=== PATIENT | male | born 1945 | race Caucasian/White ===

== ENCOUNTER 2017-01-24 09:45 | Emergency (ER) | payer BC, OTHER ==
[2017-01-24 09:52] VITALS: BP 151/97; PULSE 67; TEMP 97.7; BMI 38.4
--- NOTE | 2017-01-24 10:14 | PDOC ---
Attending Attestation - Resident Resident Name: Melita Krishnamurthyudmila - ED Attending Attestation I have performed the following: I have examined & evaluated the patient, The case was reviewed & discussed with the resident, I agree w/resident's findings & plan - HPI HPI: 01/24/17 10:31 71y M hx of dm, htn, cad, tia, gout presents with headache. pt states for the past 2 days he has had an intermittent band like headache around his head. It lasts for ~30 min to 1hr, sometimes resolves spontaneously, othertimes releived with rest, worse is 3/10. no associated neuro sypmtoms, visoin changes, n/v, f/ cneck pain. pt ontes he does sleep only approx 6 hrs/ night but has done it for many years. currently headache is 1/10. pts exam unremarkable including neuro exam suspect tension headache supportive care, if persistent will have pt return to ED or fu wit hdr. Annshannan - Physicial Exam PE: 01/24/17 10:37 see above - Medical Decision Making 01/24/17 10:37 see above
[2017-01-24] MEDS ORDERED: METOCLOPRAMIDE HCL 10 MG TABLET (FP) PO ONE ×2 (10:15→10:27)
[2017-01-24] MEDS ORDERED: ACETAMINOPHEN 325 MG TABLET (FP) PO ONE (10:16)
[2017-01-24] MEDS ORDERED: ACETAMINOPHEN 325 MG TABLET (FP) ONE (10:26)
--- NOTE | 2017-01-24 10:33 | PDOC ---
History of Present Illness - General Chief Complaint: Headache Stated Complaint: HEADACHE Time Seen by Provider: 01/24/17 10:01 History Source: Patient Exam Limitations: No Limitations - History of Present Illness Initial Comments: 01/24/17 10:26 This is a 71 yo M with PMH of TIA 2001 s/p CEA 2001, on Effient and Asa, DM, HTN , HLD, CAD s/p stents, who presents with h/a x 24 hr. He describes his h/a as band like, waxing/waning, lasting 15 min at a time, ranging between 3-1/10 and w /o any neuro deficits. He denies weakness, numbness, change in vision or hearing , difficulty swallowing, nausea, vomiting, vertigo, incontinence. He denies chest pain, palpitations, and pain, dysuria, constipation, diarrhea. 01/24/17 10:33 Past History - Past Medical History Allergies/Adverse Reactions: Allergies Allergy/AdvReac Type Severity Reaction Status Date / Time No Known Allergies Allergy Verified 01/24/17 09:52 Home Medications: Ambulatory Orders Allopurinol [Zyloprim -] 100 mg PO DAILY 05/17/16 Amlodipine Besylate [Norvasc -] 5 mg PO DAILY 05/17/16 Aspirin [ASA -] 325 mg PO DAILY 05/17/16 Cephalexin Monohydrate [Keflex -] 500 mg PO Q6H #40 capsule 05/17/16 Enalapril Maleate [Vasotec -] 30 mg PO DAILY 05/17/16 Furosemide [Lasix -] 20 mg PO DAILY 05/17/16 Liraglutide [Victoza -] 1.2 mg SQ DAILY@0700 05/17/16 Metoprolol Tartrate [Lopressor] 50 mg PO DAILY 05/17/16 Prasugrel HCl [Effient] 10 mg PO DAILY 05/17/16 Ranitidine HCl [Zantac] 150 mg PO DAILY 05/17/16 Sulfamethoxazole/Trimethoprim [Bactrim Ds -] 1 tab PO BID #20 tablet 05/17/16 Cardiac Disorders: Yes (stent) CVA: Yes (tia) Diabetes: Yes GI Disorders: Yes (gerd) HTN: Yes - Surgical History Cardiac Surgery: Yes (STENT) - Psycho/Social/Smoking Cessation Hx Anxiety: No Suicidal Ideation: No Smoking History: Former smoker Have you smoked in the past 12 months: No If you are a former smoker, when did you quit?: 2000 Information on smoking cessation initiated: No Hx Alcohol Use: No Drug/Substance Use Hx: No Substance Use Type: None Review of Systems - Review of Systems Able to Perform ROS?: Yes Is the patient limited Lithuanian proficient: No Constitutional: No: Chills, Fever, Weakness HEENTM: No: Blurred Vision, Nose Congestion, Tinnitus, Throat Pain, Difficulty Swallowing Respiratory: No: Cough, Shortness of Breath Cardiac (ROS): No: Chest Pain, Edema, Irregular Heart Rate, Lightheadedness, Palpitations, Syncope, Chest Tightness ABD/GI: No: Abdominal Distended, Constipated, Diarrhea, Difficulty Swallowing, Nausea, Rectal Bleeding, Vomiting, Tarry Stools : No: Dysuria, Flank Pain Musculoskeletal: No: Back Pain, Neck Pain Integumentary: No: Dryness, Erythema Neurological: Yes: Headache. No: Numbness, Paresthesia, Seizure, Tingling, Tremors, Weakness, Unsteady Gait Psychiatric: No: Anxiety Endocrine: No: Excessive Sweating, Flushing Hematologic/Lymphatic: Yes: Easy Bleeding, Easy Bruising (on blood thinners) All Other Systems: Reviewed and Negative *Physical Exam - Vital Signs Last Vital Signs Temp Pulse Resp BP Pulse Ox 97.7 F 67 18 151/97 98 01/24/17 09:49 01/24/17 09:49 01/24/17 09:49 01/24/17 09:49 01/24/17 09:49 01/24/17 10:35 GENERAL: AAOx3 NAD HEENT: PERRLA EOMI, fundoscopic exam normal, sclera anicteric, conjunctiva clear CV: RRR S1S2 PULM: CTA b/l EXTREMITIES: no edema NEURO: CN intact, strength 5/5 in all extremities b/l , bicep and patellar reflexes 1+ b/l, sensation intact in face and extremities b/l Medical Decision Making - Medical Decision Making 01/24/17 10:39 Patient presents with clinical picture most consistent with tension h/a there is no evidence to point to intractaneal pathology will give reglan and tylenol and reassess. 01/24/17 11:07 after an hour the headache resolved, patient stable for d/c *DC/Admit/Observation/Transfer Diagnosis at time of Disposition: Tension headache - Discharge Dispostion Disposition: HOME Condition at time of disposition: Good Admit: No - Patient Instructions Additional Instructions: you had a tension headache. If it returns try taking Tylenol according to label instructions If you develop severe headache, weakness or numbness, please return to ER.
== END 2017-01-24 11:25 | disposition home or self-care (01) ==
LOC: JER 09:45
DX: G44.209 Tension-type headache, unspecified, not intractable (principal); I25.10 Atherosclerotic heart disease of native coronary artery without angina pectoris; I10 Essential (primary) hypertension; Z95.5 Presence of coronary angioplasty implant and graft; E11.9 Type 2 diabetes mellitus without complications; Z86.73 Personal history of transient ischemic attack (TIA), and cerebral infarction without residual deficits; M10.9 Gout, unspecified
CPT/HCPCS: 99281-25

== ENCOUNTER 2020-12-04 09:55 | Inpatient (IN) | payer OTHER ==
[2020-12-04 12:02] LABS: BASO % 0.4 % (0-2.0); HEMATOCRIT 38.8 % (35.4-49); HEMOGLOBIN 13.4 GM/dL (11.7-16.9); LYMPH % 18.3 % (8-40); MCH 31.6 pg (25.7-33.7); MCHC 34.5 g/dl (32.0-35.9); MEAN CELL VOLUME 91.4 fl (80-96); MEAN PLT VOLUME 9.9 fl (7.5-11.1); MONO % 9.3 % (3.8-10.2); PLATELET COUNT 117 K/MM3 (134-434); RBC 4.25 M/mm3 (4.00-5.60); RDW 13.8 % (11.9-15.9); WHITE BLOOD COUNT 3.9 K/mm3 (4.0-10.0)
[2020-12-04 12:24] LABS: CALCIUM 8.1 mg/dL (8.5-10.1)
[2020-12-04 12:25] LABS: ALBUMIN 3.4 g/dl (3.4-5.0); BLOOD UREA NITROGEN 31.3 mg/dL (7-18)
[2020-12-04 12:28] LABS: CREATININE 2.1 mg/dL (0.55-1.3)
[2020-12-04 12:29] LABS: BILIRUBIN,TOTAL 0.7 mg/dL (0.2-1); TOT PROT 7.1 g/dl (6.4-8.2)
[2020-12-04 12:33] LABS: N-TERMINAL BNP 135.4 pg/ml (5-125)
[2020-12-04] MEDS ORDERED: DEXAMETHASONE SOD PHOSPHATE 10 MG/1 ML VIAL IVPUSH ONE (15:25)
[2020-12-04] MEDS ORDERED: DEXAMETHASONE SOD PHOSPHATE 4 MG/1 ML VIAL ONE (16:02)
[2020-12-04] MEDS ORDERED: dilTIAZem HCL 125 MG/25 ML - 25 ML VIAL ONE ×2 (17:10→17:33)
[2020-12-04] MEDS ORDERED: dilTIAZem HCL 50 MG/10 ML - 10 ML VIAL IVPUSH ONE ×2 (17:26→17:33)
[2020-12-04] MEDS ORDERED: ACETAMINOPHEN 1000 MG/100 ML VIAL (NON FORMULARY) IVPB ONE (17:48)
[2020-12-04] MEDS ORDERED: ACETAMINOPHEN INJECTION 100 ML IVPB ONE (17:48)
[2020-12-04] MEDS ORDERED: HEPARIN NA (PORCINE) 5,000 UNITS/ML 1ML VIAL IVPUSH ONE (18:01)
[2020-12-04] MEDS ORDERED: HEPARIN NA (PORCINE) 5,000 UNITS/ML 1ML VIAL ONE ×2 (18:21→22:48)
[2020-12-04] MEDS ORDERED: SODIUM CHLORIDE 0.9% 500 ML INFUS.BAG IV ONE (20:10)
[2020-12-04 21:17] LABS: MAGNESIUM 1.9 mg/dL (1.8-2.4)
[2020-12-04] MEDS ORDERED: HEPARIN - 25,000 UNIT in SODIUM CHLORIDE 495 ML IV SCH (21:45)
[2020-12-04 22:13] LABS: INR 1.08 (0.83-1.09); PROTHROMBIN TIME (PATIENT) 13.3 SEC (9.7-13.0)
[2020-12-04] MEDS ORDERED: HEPARIN NA (PORCINE) 5,000 UNITS/ML 1ML VIAL IVPUSH PRN ×2 (22:15)
[2020-12-04 22:16] LABS: ACTIVATED PTT 29.6 SECONDS (25.2-36.5)
[2020-12-04] MEDS ORDERED: ASCORBIC ACID 500 MG TABLET (FP) ONE (22:47)
[2020-12-04] MEDS ORDERED: HEPARIN INFUSION - 25,000 UNITS/500 ML INFUS.BAG IVPB ONE (22:48)
[2020-12-04] MEDS: ASCORBIC ACID 500 MG TABLET (FP) PO SCH (23:00)
[2020-12-05 06:56] LABS: INR 1.11 (0.83-1.09); PROTHROMBIN TIME (PATIENT) 13.6 SEC (9.7-13.0)
[2020-12-05 07:15] LABS: BASO % 0.2 % (0-2.0); HEMATOCRIT 38.4 % (35.4-49); HEMOGLOBIN 13.2 GM/dL (11.7-16.9); LYMPH % 16.2 % (8-40); MCH 31.3 pg (25.7-33.7); MCHC 34.5 g/dl (32.0-35.9); MEAN CELL VOLUME 90.9 fl (80-96); MEAN PLT VOLUME 10.2 fl (7.5-11.1); MONO % 7.3 % (3.8-10.2); NEUT % 76.3 % (42.8-82.8); PLATELET COUNT 113 K/MM3 (134-434); RBC 4.23 M/mm3 (4.00-5.60); RDW 13.6 % (11.9-15.9); WHITE BLOOD COUNT 3.4 K/mm3 (4.0-10.0)
[2020-12-05] MEDS ORDERED: ASCORBIC ACID 500 MG TABLET (FP) ONE (08:32)
[2020-12-05] MEDS ORDERED: DEXAMETHASONE SOD PHOSPHATE 10 MG/1 ML VIAL ONE (08:32)
[2020-12-05] MEDS ORDERED: ZINC SULFATE 220 MG CAPSULE (FP) ONE (08:33)
[2020-12-05] MEDS ORDERED: CHOLECALCIFEROL (VIT D3) 1,000 UNIT (25 MCG) TABLET ONE (08:33)
[2020-12-05] MEDS ORDERED: METOPROLOL TARTRATE 50 MG TABLET (FP) ONE (08:57)
[2020-12-05] MEDS ORDERED: FUROSEMIDE 40 MG/4 ML INJECTABLE VIAL ONE (08:57)
[2020-12-05] MEDS ORDERED: amLODIPine BESYLATE 5 MG TABLET (FP) ONE (08:57)
[2020-12-05] MEDS: ZINC SULFATE 220 MG CAPSULE (FP) PO SCH (09:00)
[2020-12-05] MEDS: CHOLECALCIFEROL (VIT D3) 1,000 UNIT (25 MCG) TABLET PO SCH (09:00)
[2020-12-05] MEDS: amLODIPine BESYLATE 5 MG TABLET (FP) PO SCH (09:00)
[2020-12-05] MEDS: DEXAMETHASONE SOD PHOSPHATE 4 MG/1 ML VIAL IVPUSH SCH (09:01)
[2020-12-05] MEDS: ASCORBIC ACID 500 MG TABLET (FP) PO SCH ×2 (10:00→21:03)
[2020-12-05] MEDS ORDERED: FUROSEMIDE 40 MG/4 ML INJECTABLE VIAL IVPUSH SCH (10:00)
[2020-12-05] MEDS ORDERED: METOPROLOL TARTRATE 50 MG TABLET (FP) PO SCH (10:00)
[2020-12-05] MEDS: SODIUM CHLORIDE 1,000 ML IV SCH (12:44)
[2020-12-05 13:19] LABS: ALBUMIN 3.3 g/dl (3.4-5.0); BLOOD UREA NITROGEN 31.9 mg/dL (7-18); CALCIUM 8.6 mg/dL (8.5-10.1); MAGNESIUM 2.2 mg/dL (1.8-2.4)
[2020-12-05 13:20] LABS: CREATININE 1.6 mg/dL (0.55-1.3)
[2020-12-05 13:22] LABS: BILIRUBIN,TOTAL 0.6 mg/dL (0.2-1); TOT PROT 7.2 g/dl (6.4-8.2)
[2020-12-05] MEDS: INSULIN SLIDING SCALE (NOVOLOG) 1 VIAL SQ SCH ×2 (17:03→21:03)
[2020-12-05] MEDS: METOPROLOL TARTRATE 25 MG TABLET (FP) PO SCH (21:03)
[2020-12-05] MEDS: APIXABAN 2.5 MG TABLET PO SCH (21:03)
[2020-12-05] MEDS ORDERED: ACETAMINOPHEN 1000 MG/100 ML VIAL (NON FORMULARY) IVPB PRN (21:07)
[2020-12-05] MEDS ORDERED: dilTIAZem HCL 50 MG/10 ML - 10 ML VIAL IVPUSH ONE (21:08)
[2020-12-06] MEDS: INSULIN SLIDING SCALE (NOVOLOG) 1 VIAL SQ SCH ×4 (06:53→21:50)
[2020-12-06 07:15] LABS: BASO % 0.2 % (0-2.0); HEMATOCRIT 39.9 % (35.4-49); HEMOGLOBIN 13.4 GM/dL (11.7-16.9); MCH 30.8 pg (25.7-33.7); MCHC 33.6 g/dl (32.0-35.9); MEAN CELL VOLUME 91.7 fl (80-96); MEAN PLT VOLUME 10.4 fl (7.5-11.1); MONO % 4.1 % (3.8-10.2); NEUT % 87.7 % (42.8-82.8); PLATELET COUNT 118 K/MM3 (134-434); RBC 4.35 M/mm3 (4.00-5.60); RDW 13.9 % (11.9-15.9); WHITE BLOOD COUNT 8.1 K/mm3 (4.0-10.0)
[2020-12-06 07:38] LABS: ALBUMIN 2.7 g/dl (3.4-5.0); BLOOD UREA NITROGEN 38.5 mg/dL (7-18); CALCIUM 8.3 mg/dL (8.5-10.1)
[2020-12-06 07:42] LABS: CREATININE 1.7 mg/dL (0.55-1.3)
[2020-12-06 07:44] LABS: BILIRUBIN,TOTAL 0.6 mg/dL (0.2-1)
[2020-12-06 07:45] LABS: TOT PROT 6.3 g/dl (6.4-8.2)
[2020-12-06] MEDS ORDERED: REMDESIVIR 200 MG in SODIUM CHLORIDE 250 ML IVPB ONE (09:00)
[2020-12-06] MEDS: DEXAMETHASONE SOD PHOSPHATE 4 MG/1 ML VIAL IVPUSH SCH (10:39)
[2020-12-06] MEDS: ZINC SULFATE 220 MG CAPSULE (FP) PO SCH (10:39)
[2020-12-06] MEDS: METOPROLOL TARTRATE 25 MG TABLET (FP) PO SCH ×2 (10:39→21:50)
[2020-12-06] MEDS: ASCORBIC ACID 500 MG TABLET (FP) PO SCH (10:40)
[2020-12-06] MEDS: APIXABAN 2.5 MG TABLET PO SCH ×2 (10:40→21:50)
[2020-12-06] MEDS: amLODIPine BESYLATE 5 MG TABLET (FP) PO SCH (10:40)
[2020-12-06] MEDS: CHOLECALCIFEROL (VIT D3) 1,000 UNIT (25 MCG) TABLET PO SCH (10:40)
[2020-12-06] MEDS: SODIUM CHLORIDE 1,000 ML IV SCH (17:26)
[2020-12-06] MEDS ORDERED: PT OWN MED DRAWER 7, Y5N ONE (17:46)
[2020-12-06] MEDS ORDERED: LACTULOSE 20 GM/30 ML UDC (FOR ORAL USE ONLY) PO PRN (19:14)
[2020-12-06] MEDS: ATORVASTATIN CA 40 MG TABLET (FP) PO SCH (21:50)
[2020-12-06 22:28] LABS: EPI CELLS 11 /uL (0-25.1); HYALINE CASTS 1 /uL (0-3.1); PH,URINE 5.5 (5.0-8.0); URINE APPEARANCE CLEAR; URINE BACTERIA 2 /uL (0-1359); URINE BILIRUBIN NEGATIVE (NEGATIVE); URINE COLOR YELLOW; URINE GLUCOSE (UA) NEGATIVE (NEGATIVE); URINE KETONE NEGATIVE (NEGATIVE); URINE LEUK ESTERASE NEGATIVE (NEGATIVE); URINE NITRITE NEGATIVE (NEGATIVE); URINE PROTEIN 2+ (NEGATIVE); URINE RBC 34 /uL (0-23.9); URINE WBC 7 /uL (0-25.8)
[2020-12-07] MEDS ORDERED: ACETAMINOPHEN 325 MG TABLET (FP) PO PRN (02:17)
[2020-12-07] MEDS: INSULIN SLIDING SCALE (NOVOLOG) 1 VIAL SQ SCH ×4 (06:16→21:37)
[2020-12-07 06:54] LABS: HEMATOCRIT 35.9 % (35.4-49); HEMOGLOBIN 12.1 GM/dL (11.7-16.9); MCH 30.7 pg (25.7-33.7); MCHC 33.8 g/dl (32.0-35.9); MEAN CELL VOLUME 90.7 fl (80-96); PLATELET COUNT 119 K/MM3 (134-434); RBC 3.96 M/mm3 (4.00-5.60); RDW 13.8 % (11.9-15.9); WHITE BLOOD COUNT 5.9 K/mm3 (4.0-10.0)
[2020-12-07 07:22] LABS: ALBUMIN 2.4 g/dl (3.4-5.0); BLOOD UREA NITROGEN 39.6 mg/dL (7-18); CALCIUM 7.7 mg/dL (8.5-10.1)
[2020-12-07 07:26] LABS: CREATININE 1.4 mg/dL (0.55-1.3)
[2020-12-07 07:27] LABS: BILIRUBIN,TOTAL 0.5 mg/dL (0.2-1); TOT PROT 5.6 g/dl (6.4-8.2)
[2020-12-07] MEDS: APIXABAN 2.5 MG TABLET PO SCH ×2 (10:38→21:31)
[2020-12-07] MEDS: amLODIPine BESYLATE 5 MG TABLET (FP) PO SCH (10:39)
[2020-12-07] MEDS: DEXAMETHASONE SOD PHOSPHATE 4 MG/1 ML VIAL IVPUSH SCH (10:39)
[2020-12-07] MEDS: METOPROLOL TARTRATE 25 MG TABLET (FP) PO SCH ×2 (10:39→21:31)
[2020-12-07] MEDS: REMDESIVIR 100 MG in SODIUM CHLORIDE 250 ML IVPB SCH (10:40)
[2020-12-07] MEDS ORDERED: PT OWN MED DRAWER 7, Y5N ONE (11:58)
[2020-12-07] MEDS: SODIUM CHLORIDE 1,000 ML IV SCH (12:38)
[2020-12-07 14:07] LABS: MYCOPLASMA PNEUMONIAE,IG G AB 735 U/mL (0-99); MYCOPLASMA PNEUMONIAE,IGM AB <770 U/mL (0-769)
[2020-12-07] MEDS ORDERED: TOCILIZUMAB (ACTEMRA) 200 MG/10 ML VIAL IVPB ONE ×2 (14:43)
[2020-12-07] MEDS ORDERED: TOCILIZUMAB IVPB ONE (16:00)
[2020-12-07] MEDS ORDERED: SODIUM CHLORIDE IVPB ONE (16:00)
[2020-12-07] MEDS: ATORVASTATIN CA 40 MG TABLET (FP) PO SCH (21:31)
[2020-12-08] MEDS: INSULIN SLIDING SCALE (NOVOLOG) 1 VIAL SQ SCH ×4 (06:10→21:49)
[2020-12-08 07:55] LABS: BASO % 0.1 % (0-2.0); EOS % 0.4 % (0-4.5); HEMATOCRIT 38.1 % (35.4-49); HEMOGLOBIN 12.9 GM/dL (11.7-16.9); LYMPH % 8.7 % (8-40); MCH 30.5 pg (25.7-33.7); MCHC 33.9 g/dl (32.0-35.9); MONO % 9.7 % (3.8-10.2); NEUT % 81.1 % (42.8-82.8); PLATELET COUNT 149 K/MM3 (134-434); RBC 4.23 M/mm3 (4.00-5.60); RDW 13.9 % (11.9-15.9); WHITE BLOOD COUNT 5.7 K/mm3 (4.0-10.0)
[2020-12-08 08:20] LABS: CALCIUM 7.5 mg/dL (8.5-10.1)
[2020-12-08 08:21] LABS: ALBUMIN 2.4 g/dl (3.4-5.0); BLOOD UREA NITROGEN 34.1 mg/dL (7-18)
[2020-12-08 08:24] LABS: CREATININE 1.2 mg/dL (0.55-1.3)
[2020-12-08 08:26] LABS: BILIRUBIN,TOTAL 0.9 mg/dL (0.2-1); TOT PROT 5.8 g/dl (6.4-8.2)
[2020-12-08] MEDS: APIXABAN 2.5 MG TABLET PO SCH ×2 (09:36→21:49)
[2020-12-08] MEDS: REMDESIVIR 100 MG in SODIUM CHLORIDE 250 ML IVPB SCH (09:36)
[2020-12-08] MEDS: METOPROLOL TARTRATE 25 MG TABLET (FP) PO SCH ×2 (09:36→21:49)
[2020-12-08] MEDS: DEXAMETHASONE SOD PHOSPHATE 4 MG/1 ML VIAL IVPUSH SCH (09:36)
[2020-12-08] MEDS: amLODIPine BESYLATE 5 MG TABLET (FP) PO SCH (09:37)
[2020-12-08] MEDS: SODIUM CHLORIDE 1,000 ML IV SCH (12:30)
[2020-12-08] MEDS: ATORVASTATIN CA 40 MG TABLET (FP) PO SCH (21:48)
[2020-12-09] MEDS: SODIUM CHLORIDE 1,000 ML IV SCH (00:43)
[2020-12-09] MEDS: INSULIN SLIDING SCALE (NOVOLOG) 1 VIAL SQ SCH ×4 (06:44→22:10)
[2020-12-09 07:04] LABS: BASO % 0.6 % (0-2.0); HEMATOCRIT 37.8 % (35.4-49); HEMOGLOBIN 12.9 GM/dL (11.7-16.9); LYMPH % 6.4 % (8-40); MCH 31.1 pg (25.7-33.7); MCHC 34.1 g/dl (32.0-35.9); MEAN CELL VOLUME 91.1 fl (80-96); MEAN PLT VOLUME 10.1 fl (7.5-11.1); PLATELET COUNT 166 K/MM3 (134-434); RBC 4.15 M/mm3 (4.00-5.60); RDW 14.1 % (11.9-15.9); WHITE BLOOD COUNT 7.5 K/mm3 (4.0-10.0)
[2020-12-09 07:39] LABS: CALCIUM 8.2 mg/dL (8.5-10.1)
[2020-12-09 07:40] LABS: ALBUMIN 2.4 g/dl (3.4-5.0); BLOOD UREA NITROGEN 36.1 mg/dL (7-18)
[2020-12-09 07:44] LABS: CREATININE 1.2 mg/dL (0.55-1.3)
[2020-12-09 07:46] LABS: BILIRUBIN,TOTAL 0.8 mg/dL (0.2-1); TOT PROT 5.8 g/dl (6.4-8.2)
[2020-12-09] MEDS: METOPROLOL TARTRATE 25 MG TABLET (FP) PO SCH ×2 (09:18→22:10)
[2020-12-09] MEDS: REMDESIVIR 100 MG in SODIUM CHLORIDE 250 ML IVPB SCH (09:18)
[2020-12-09] MEDS: ENALAPRIL MALEATE 2.5 MG TABLET PO SCH (09:18)
[2020-12-09] MEDS: amLODIPine BESYLATE 5 MG TABLET (FP) PO SCH (09:18)
[2020-12-09] MEDS: APIXABAN 2.5 MG TABLET PO SCH ×2 (09:18→22:10)
[2020-12-09] MEDS: DEXAMETHASONE SOD PHOSPHATE 4 MG/1 ML VIAL IVPUSH SCH (09:20)
[2020-12-09 10:50] LABS: ANISOCYTOSIS 0; HELMET CELLS 0; HOWELL-JOLLY BODIES 0; MACROCYTOSIS 0; OVALOCYTE 0; PLATELET ESTIMATE NORMAL; ROULEAU 0; SICKELED CELLS 0; TARGET CELLS 0; TEAR DROP CELLS 0; TOXIC GRANULATION 0
[2020-12-09] MEDS ORDERED: FUROSEMIDE 40 MG/4 ML INJECTABLE VIAL IVPUSH ONE (12:08)
[2020-12-09] MEDS: ATORVASTATIN CA 40 MG TABLET (FP) PO SCH (22:10)
[2020-12-09] MEDS: MELATONIN 5 MG TABLETS PO PRN (23:19)
[2020-12-10] MEDS: INSULIN SLIDING SCALE (NOVOLOG) 1 VIAL SQ SCH ×4 (06:13→22:02)
[2020-12-10 06:57] LABS: ALBUMIN 2.4 g/dl (3.4-5.0); CALCIUM 7.9 mg/dL (8.5-10.1)
[2020-12-10 06:58] LABS: BLOOD UREA NITROGEN 43.6 mg/dL (7-18); MAGNESIUM 2.2 mg/dL (1.8-2.4)
[2020-12-10 07:01] LABS: CREATININE 1.4 mg/dL (0.55-1.3)
[2020-12-10 07:02] LABS: BILIRUBIN,TOTAL 0.7 mg/dL (0.2-1); TOT PROT 5.8 g/dl (6.4-8.2)
[2020-12-10] MEDS: amLODIPine BESYLATE 5 MG TABLET (FP) PO SCH (10:10)
[2020-12-10] MEDS: ENALAPRIL MALEATE 2.5 MG TABLET PO SCH (10:10)
[2020-12-10] MEDS: APIXABAN 2.5 MG TABLET PO SCH ×2 (10:10→22:02)
[2020-12-10] MEDS: METOPROLOL TARTRATE 25 MG TABLET (FP) PO SCH ×2 (10:10→22:02)
[2020-12-10] MEDS: REMDESIVIR 100 MG in SODIUM CHLORIDE 250 ML IVPB SCH (10:10)
[2020-12-10] MEDS: DEXAMETHASONE SOD PHOSPHATE 4 MG/1 ML VIAL IVPUSH SCH (10:11)
[2020-12-10] MEDS: SODIUM ZIRCONIUM CYCLOSILICATE (LOKELMA) 10 GM PACKET PO SCH (15:23)
[2020-12-10] MEDS: ATORVASTATIN CA 40 MG TABLET (FP) PO SCH (22:02)
[2020-12-10] MEDS: MELATONIN 5 MG TABLETS PO PRN (22:02)
[2020-12-10] MEDS ORDERED: MELATONIN 5 MG TABLETS PO ONE (23:41)
[2020-12-11] MEDS ORDERED: LORazepam 2 MG/ML SDV VIAL IVPUSH ONE (04:39)
[2020-12-11] MEDS: INSULIN SLIDING SCALE (NOVOLOG) 1 VIAL SQ SCH ×4 (06:55→21:56)
[2020-12-11 08:02] LABS: BASO % 0.3 % (0-2.0); EOS % 0.5 % (0-4.5); HEMATOCRIT 42.2 % (35.4-49); HEMOGLOBIN 14.3 GM/dL (11.7-16.9); LYMPH % 6.6 % (8-40); MCH 30.8 pg (25.7-33.7); MEAN CELL VOLUME 90.7 fl (80-96); MEAN PLT VOLUME 9.6 fl (7.5-11.1); MONO % 3.4 % (3.8-10.2); NEUT % 89.2 % (42.8-82.8); PLATELET COUNT 216 K/MM3 (134-434); RBC 4.65 M/mm3 (4.00-5.60); RDW 13.8 % (11.9-15.9)
[2020-12-11 08:08] LABS: CALCIUM 8.1 mg/dL (8.5-10.1)
[2020-12-11 08:09] LABS: ALBUMIN 2.6 g/dl (3.4-5.0); MAGNESIUM 2.2 mg/dL (1.8-2.4)
[2020-12-11 08:12] LABS: CREATININE 1.3 mg/dL (0.55-1.3)
[2020-12-11 08:13] LABS: BILIRUBIN,TOTAL 0.9 mg/dL (0.2-1); TOT PROT 5.9 g/dl (6.4-8.2)
[2020-12-11] MEDS ORDERED: PT OWN MED DRAWER 7, Y5N ONE (09:45)
[2020-12-11] MEDS: METOPROLOL TARTRATE 25 MG TABLET (FP) PO SCH ×2 (09:52→21:42)
[2020-12-11] MEDS: DEXAMETHASONE SOD PHOSPHATE 4 MG/1 ML VIAL IVPUSH SCH ×2 (09:52→21:35)
[2020-12-11] MEDS: SODIUM ZIRCONIUM CYCLOSILICATE (LOKELMA) 10 GM PACKET PO SCH (09:52)
[2020-12-11] MEDS: APIXABAN 2.5 MG TABLET PO SCH ×2 (09:52→21:35)
[2020-12-11] MEDS: amLODIPine BESYLATE 5 MG TABLET (FP) PO SCH (09:52)
[2020-12-11] MEDS: FAMOTIDINE 20 MG/50 ML IVPB 20 MG/50 ML MG IVPB SCH ×2 (14:26→21:35)
[2020-12-11] MEDS: ATORVASTATIN CA 40 MG TABLET (FP) PO SCH (21:34)
[2020-12-12] MEDS: MORPHINE SULFATE 2 MG/ML VIAL IVPUSH ONE ×2 (00:03→00:11)
[2020-12-12] MEDS: MELATONIN 5 MG TABLETS PO SCH ×2 (00:03→21:24)
[2020-12-12] MEDS ORDERED: LORazepam 1 MG TABLET PO ONE (00:18)
[2020-12-12] MEDS ORDERED: LORazepam 2 MG/ML SDV VIAL ONE (02:49)
[2020-12-12] MEDS ORDERED: LORazepam 2 MG/ML SDV VIAL IVPUSH ONE ×2 (03:00→04:39)
[2020-12-12] MEDS ORDERED: FUROSEMIDE 40 MG/4 ML INJECTABLE VIAL IVPUSH ONE (03:00)
[2020-12-12] MEDS: HALOPERIDOL LACTATE 5 MG/ML IM ONE ×2 (05:43→05:50)
[2020-12-12] MEDS: INSULIN SLIDING SCALE (NOVOLOG) 1 VIAL SQ SCH ×4 (06:32→21:28)
[2020-12-12] MEDS: LORazepam 2 MG/ML SDV VIAL IVPUSH SCH ×3 (06:36→17:38)
[2020-12-12 06:52] LABS: ARTERIAL BLD GAS O2 SATURATION 86.6 mmHg (95-98); ARTERIAL BLOOD GAS BASE EXCESS -4.8 mmol/L (-2-2); ARTERIAL BLOOD GAS PO2 52.8 mmHg (80-100); ARTERIAL BLOOD GAS pH 7.365 (7.350-7.450)
[2020-12-12 06:54] LABS: ALLENS TEST POSITIVE
[2020-12-12] MEDS ORDERED: SUCCINYLCHOLINE CHLORIDE 200 MG/10 ML SYRINGE ONE (07:15)
[2020-12-12 07:41] LABS: BASO % 0.3 % (0-2.0); EOS % 0.1 % (0-4.5); HEMATOCRIT 44.4 % (35.4-49); HEMOGLOBIN 15.3 GM/dL (11.7-16.9); LYMPH % 3.3 % (8-40); MCH 30.7 pg (25.7-33.7); MCHC 34.4 g/dl (32.0-35.9); MEAN CELL VOLUME 89.5 fl (80-96); MEAN PLT VOLUME 9.1 fl (7.5-11.1); MONO % 2.8 % (3.8-10.2); NEUT % 93.5 % (42.8-82.8); PLATELET COUNT 204 K/MM3 (134-434); RBC 4.97 M/mm3 (4.00-5.60); RDW 14.1 % (11.9-15.9); WHITE BLOOD COUNT 12.4 K/mm3 (4.0-10.0)
[2020-12-12] MEDS ORDERED: MIDAZOLAM HCL 2 MG/2 ML SINGLE DOSE VIAL IVPUSH ONE (07:41)
[2020-12-12] MEDS ORDERED: PROPOFOL 200 MG/20 ML VIAL IVPUSH ONE (07:48)
[2020-12-12] MEDS ORDERED: LORazepam 2 MG/ML SDV VIAL IM ONE (07:50)
[2020-12-12 08:09] LABS: ALBUMIN 2.8 g/dl (3.4-5.0); BLOOD UREA NITROGEN 59.4 mg/dL (7-18); CALCIUM 8.2 mg/dL (8.5-10.1); PHOSPHOROUS 5.8 mg/dL (2.5-4.9)
[2020-12-12 08:10] LABS: TOT PROT 6.3 g/dl (6.4-8.2)
[2020-12-12 08:11] LABS: CREATININE 1.8 mg/dL (0.55-1.3); MAGNESIUM 2.1 mg/dL (1.8-2.4)
[2020-12-12] MEDS ORDERED: PROPOFOL 1,000,000 MCG/100 ML VIAL ONE (08:29)
[2020-12-12] MEDS ORDERED: FENTANYL NS IVPB 500 MCG/100 ML BAG IVPB ONE (08:29)
[2020-12-12 10:29] LABS: ANISOCYTOSIS 0; HELMET CELLS 0; HOWELL-JOLLY BODIES 0; MACROCYTOSIS 0; OVALOCYTE 0; PLATELET ESTIMATE NORMAL; ROULEAU 0; SICKELED CELLS 0; TARGET CELLS 0; TEAR DROP CELLS 0; TOXIC GRANULATION 0
[2020-12-12] MEDS: VECURONIUM BROMIDE 100 MG/100 ML BAG IVPB SCH (11:09)
[2020-12-12] MEDS: DEXAMETHASONE SOD PHOSPHATE 4 MG/1 ML VIAL IVPUSH SCH ×2 (11:09→21:23)
[2020-12-12] MEDS: HALOPERIDOL LACTATE 5 MG/ML IM SCH ×4 (11:10→21:24)
[2020-12-12] MEDS: METOPROLOL TARTRATE 25 MG TABLET (FP) PO SCH ×2 (11:10→21:23)
[2020-12-12] MEDS: APIXABAN 2.5 MG TABLET PO SCH ×2 (11:10→21:23)
[2020-12-12] MEDS: amLODIPine BESYLATE 5 MG TABLET (FP) PO SCH (11:10)
[2020-12-12] MEDS: FAMOTIDINE 20 MG/50 ML IVPB 20 MG/50 ML MG IVPB SCH ×2 (11:11→21:23)
[2020-12-12 12:04] LABS: ARTERIAL BLOOD GAS BASE EXCESS -5.4 mmol/L (-2-2); ARTERIAL BLOOD GAS PO2 108.8 mmHg (80-100); ARTERIAL BLOOD GAS pH 7.231 (7.350-7.450)
[2020-12-12 12:05] LABS: ALLENS TEST POSITIVE
[2020-12-12 12:06] LABS: VENT MODE AC; VENT RATE 24
[2020-12-12] MEDS: PROPOFOL 1,000,000 MCG/100 ML VIAL IVPB SCH (12:06)
[2020-12-12] MEDS: FENTANYL NS IVPB 500 MCG/100 ML BAG IVPB SCH (15:19)
[2020-12-12] MEDS ORDERED: PT OWN MED DRAWER 7, Y5N ONE (20:49)
[2020-12-12] MEDS: ATORVASTATIN CA 40 MG TABLET (FP) PO SCH (21:23)
[2020-12-13] MEDS ORDERED: SODIUM CHLORIDE 500 ML IV SCH (00:30)
[2020-12-13] MEDS ORDERED: SODIUM CHLORIDE 1,000 ML IV SCH (00:30)
[2020-12-13] MEDS: LORazepam 2 MG/ML SDV VIAL IVPUSH SCH ×5 (01:16→17:40)
[2020-12-13] MEDS: HALOPERIDOL LACTATE 5 MG/ML IM SCH ×4 (01:17→15:57)
[2020-12-13 06:15] LABS: ARTERIAL BLD GAS O2 SATURATION 98.5 mmHg (95-98); ARTERIAL BLOOD GAS BASE EXCESS -6.3 mmol/L (-2-2); ARTERIAL BLOOD GAS PO2 150.1 mmHg (80-100); ARTERIAL BLOOD GAS pH 7.229 (7.350-7.450)
[2020-12-13 06:22] LABS: ALLENS TEST POSITIVE
[2020-12-13 06:23] LABS: VENT MODE V-AC; VENT RATE 24
[2020-12-13] MEDS: INSULIN SLIDING SCALE (NOVOLOG) 1 VIAL SQ SCH ×4 (06:38→22:51)
[2020-12-13 07:11] LABS: BASO % 0.4 % (0-2.0); EOS % 0.1 % (0-4.5); HEMATOCRIT 40.5 % (35.4-49); HEMOGLOBIN 13.5 GM/dL (11.7-16.9); LYMPH % 3.5 % (8-40); MCH 30.5 pg (25.7-33.7); MCHC 33.4 g/dl (32.0-35.9); MEAN CELL VOLUME 91.5 fl (80-96); MEAN PLT VOLUME 9.5 fl (7.5-11.1); MONO % 1.6 % (3.8-10.2); NEUT % 94.4 % (42.8-82.8); PLATELET COUNT 163 K/MM3 (134-434); RBC 4.43 M/mm3 (4.00-5.60); RDW 13.9 % (11.9-15.9); WHITE BLOOD COUNT 15.6 K/mm3 (4.0-10.0)
[2020-12-13 07:15] LABS: CHLORIDE 104 mmol/L (98-107); SODIUM 137 mmol/L (136-145)
[2020-12-13 07:17] LABS: ANION GAP 12 MMOL/L (8-16); CALCIUM 7.5 mg/dL (8.5-10.1); CO2 22 mmol/L (21-32); GLUCOSE,RANDOM 193 mg/dL (74-106)
[2020-12-13 07:18] LABS: ALBUMIN 2.6 g/dl (3.4-5.0); MAGNESIUM 2.7 mg/dL (1.8-2.4)
[2020-12-13 07:20] LABS: CREATININE 3.5 mg/dL (0.55-1.3); SGPT/ALT 47 U/L (13-61)
[2020-12-13 07:21] LABS: SGOT/AST 25 U/L (15-37)
[2020-12-13 07:22] LABS: BILIRUBIN,TOTAL 0.6 mg/dL (0.2-1); TOT PROT 5.6 g/dl (6.4-8.2)
[2020-12-13 07:23] LABS: ALK PHOS 66 U/L (45-117)
[2020-12-13 07:48] LABS: BLOOD UREA NITROGEN 96.6 mg/dL (7-18)
[2020-12-13] MEDS ORDERED: DEXTROSE 50%-WATER - 25 GM/50 ML VIAL IVPUSH ONE (08:17)
[2020-12-13] MEDS ORDERED: INSULIN REGULAR HUMAN 100 UNITS/ML *VIAL IVPUSH ONE (08:17)
[2020-12-13] MEDS ORDERED: CALCIUM GLUCONATE 10% - 1,000 MG/10 ML VIAL IVPUSH ONE (08:18)
[2020-12-13] MEDS ORDERED: DEXTROSE 50%-WATER 25 GM/50 ML DISP.SYRIN ONE (08:55)
[2020-12-13] MEDS: SODIUM CHLORIDE 1,000 ML IV SCH ×2 (08:59→23:42)
[2020-12-13] MEDS: APIXABAN 2.5 MG TABLET PO SCH ×2 (09:05→22:30)
[2020-12-13] MEDS: METOPROLOL TARTRATE 25 MG TABLET (FP) PO SCH ×2 (09:06→22:31)
[2020-12-13] MEDS: FAMOTIDINE 20 MG/50 ML IVPB 20 MG/50 ML MG IVPB SCH ×2 (09:06→22:31)
[2020-12-13] MEDS: amLODIPine BESYLATE 5 MG TABLET (FP) PO SCH (09:06)
[2020-12-13] MEDS: DEXAMETHASONE SOD PHOSPHATE 4 MG/1 ML VIAL IVPUSH SCH ×2 (09:29→22:30)
[2020-12-13] MEDS ORDERED: SODIUM ZIRCONIUM CYCLOSILICATE (LOKELMA) 5 GM PACKET PO SCH (10:00)
[2020-12-13] MEDS ORDERED: PT OWN MED DRAWER 7, Y5N ONE (10:07)
[2020-12-13] MEDS ORDERED: CALCIUM GLUCONATE IN NACL 1 GM/50 ML BAG IVPB ONE (10:15)
[2020-12-13 10:17] LABS: ANISOCYTOSIS 0; HELMET CELLS 0; HOWELL-JOLLY BODIES 0; MACROCYTOSIS 0; OVALOCYTE 0; PLATELET ESTIMATE NORMAL; ROULEAU 0; SICKELED CELLS 0; TARGET CELLS 0; TEAR DROP CELLS 0; TOXIC GRANULATION 0
[2020-12-13] MEDS: VECURONIUM BROMIDE 100 MG/100 ML BAG IVPB SCH (11:21)
[2020-12-13] MEDS ORDERED: METOPROLOL TARTRATE 5 MG/5 ML VIAL IVPUSH PRN (12:41)
[2020-12-13] MEDS ORDERED: METOPROLOL TARTRATE 5 MG/5 ML VIAL IVPUSH ONE (12:42)
[2020-12-13] MEDS: PROPOFOL 1,000,000 MCG/100 ML VIAL IVPB SCH (14:00)
[2020-12-13] MEDS: SODIUM ZIRCONIUM CYCLOSILICATE (LOKELMA) 5 GM PACKET PO SCH (15:57)
[2020-12-13] MEDS: FENTANYL NS IVPB 500 MCG/100 ML BAG IVPB SCH (15:57)
[2020-12-13] MEDS: SEVELAMER CARBONATE 2.4 GM POWDER PACKET PO SCH (17:25)
[2020-12-13] MEDS: METOPROLOL TARTRATE 5 MG/5 ML VIAL IVPUSH PRN (18:16)
[2020-12-13] MEDS: ATORVASTATIN CA 40 MG TABLET (FP) PO SCH (22:30)
[2020-12-13] MEDS: NOREPINEPHRINE BITARTRATE 8,000 MCG/500 ML BAG IVPB SCH (23:41)
[2020-12-14] MEDS: LORazepam 2 MG/ML SDV VIAL IVPUSH SCH ×4 (00:59→17:34)
[2020-12-14] MEDS: INSULIN SLIDING SCALE (NOVOLOG) 1 VIAL SQ SCH ×4 (06:04→21:36)
[2020-12-14 06:37] LABS: ARTERIAL BLD GAS O2 SATURATION 98.1 mmHg (95-98); ARTERIAL BLOOD GAS BASE EXCESS -8.1 mmol/L (-2-2); ARTERIAL BLOOD GAS PO2 130.2 mmHg (80-100); ARTERIAL BLOOD GAS pH 7.242 (7.350-7.450)
[2020-12-14 06:48] LABS: ALLENS TEST POSITIVE; VENT MODE A/C; VENT RATE 24
[2020-12-14 06:52] LABS: BASO % 0.1 % (0-2.0); EOS % 0.1 % (0-4.5); HEMATOCRIT 39.8 % (35.4-49); HEMOGLOBIN 13.5 GM/dL (11.7-16.9); LYMPH % 3.2 % (8-40); MCH 30.7 pg (25.7-33.7); MEAN CELL VOLUME 90.4 fl (80-96); MEAN PLT VOLUME 9.2 fl (7.5-11.1); MONO % 2.9 % (3.8-10.2); NEUT % 93.7 % (42.8-82.8); PLATELET COUNT 244 K/MM3 (134-434); RDW 14.1 % (11.9-15.9); WHITE BLOOD COUNT 23.5 K/mm3 (4.0-10.0)
[2020-12-14 07:14] LABS: CALCIUM 7.4 mg/dL (8.5-10.1)
[2020-12-14 07:15] LABS: ALBUMIN 2.6 g/dl (3.4-5.0); BLOOD UREA NITROGEN 103.5 mg/dL (7-18); MAGNESIUM 2.9 mg/dL (1.8-2.4)
[2020-12-14 07:18] LABS: PHOSPHOROUS 6.8 mg/dL (2.5-4.9)
[2020-12-14 07:19] LABS: BILIRUBIN,TOTAL 0.7 mg/dL (0.2-1); TOT PROT 5.6 g/dl (6.4-8.2)
[2020-12-14] MEDS ORDERED: SODIUM CHLORIDE 0.45% 1,000 ML IV SCH (08:30)
[2020-12-14] MEDS: PROPOFOL 1,000,000 MCG/100 ML VIAL IVPB SCH (09:22)
[2020-12-14] MEDS: SEVELAMER CARBONATE 2.4 GM POWDER PACKET PO SCH ×3 (09:25→17:33)
[2020-12-14] MEDS ORDERED: PIPERACILLIN/TAZOB 3.375 GM 3.375 GM in DEXTROSE 5%-WATER - 50 ML IVPB SCH (10:00)
[2020-12-14] MEDS ORDERED: PIPERACILLIN/TAZOB 2.25 GM 2.25 GM in DEXTROSE 5%-WATER - 50 ML IVPB ONE (10:00)
[2020-12-14] MEDS ORDERED: VANCOMYCIN 1 GM in D5W (PRE-DOCKED) 1,000 MG/250 ML IVPB ONE (10:00)
[2020-12-14] MEDS: amLODIPine BESYLATE 5 MG TABLET (FP) PO SCH (10:25)
[2020-12-14] MEDS: DEXAMETHASONE SOD PHOSPHATE 4 MG/1 ML VIAL IVPUSH SCH ×2 (10:25→21:34)
[2020-12-14] MEDS: SODIUM ZIRCONIUM CYCLOSILICATE (LOKELMA) 5 GM PACKET PO SCH (10:25)
[2020-12-14] MEDS: FAMOTIDINE 20 MG/50 ML IVPB 20 MG/50 ML MG IVPB SCH ×2 (10:25→21:35)
[2020-12-14] MEDS: METOPROLOL TARTRATE 25 MG TABLET (FP) PO SCH ×2 (10:25→21:35)
[2020-12-14] MEDS: SODIUM CHLORIDE 0.45% 1,000 ML IV SCH (10:25)
[2020-12-14] MEDS: APIXABAN 2.5 MG TABLET PO SCH ×2 (10:25→21:35)
[2020-12-14] MEDS ORDERED: PIPERACILLIN/TAZOBACTAM 2.25 GM VIAL IVPB ONE (10:59)
[2020-12-14] MEDS ORDERED: DEXTROSE 5%-WATER - 50 ML IVPB ONE (10:59)
[2020-12-14 11:35] LABS: ANISOCYTOSIS 1+; MACROCYTOSIS 0; OVALOCYTE 1+; PLATELET ESTIMATE NORMAL; TEAR DROP CELLS 1+; TOXIC GRANULATION 2+
[2020-12-14] MEDS: AMINO ACIDS/PROTEIN HYDROLYS 30 ML LIQUID.PKT PO SCH (17:33)
[2020-12-14] MEDS: FENTANYL NS IVPB 500 MCG/100 ML BAG IVPB SCH (17:33)
[2020-12-14 20:39] LABS: EPI CELLS >36 /uL (0-25.1); HYALINE CASTS 15 /uL (0-3.1); URINE APPEARANCE CLOUDY; URINE BACTERIA 93 /uL (0-1359); URINE BILIRUBIN NEGATIVE (NEGATIVE); URINE COLOR YELLOW; URINE GLUCOSE (UA) 1+ (NEGATIVE); URINE KETONE NEGATIVE (NEGATIVE); URINE LEUK ESTERASE 2+ (NEGATIVE); URINE NITRITE NEGATIVE (NEGATIVE); URINE PROTEIN 1+ (NEGATIVE); URINE RBC 1565 /uL (0-23.9); URINE UROBILINOGEN 0.2 mg/dL (0.2-1.0); URINE WBC 378 /uL (0-25.8)
[2020-12-14 21:33] LABS: URINE CRYSTALS PRESENT /hpf
[2020-12-14] MEDS: ATORVASTATIN CA 40 MG TABLET (FP) PO SCH (21:35)
[2020-12-14] MEDS: VECURONIUM BROMIDE 100 MG/100 ML BAG IVPB SCH (21:35)
[2020-12-15] MEDS: NOREPINEPHRINE BITARTRATE 8,000 MCG/500 ML BAG IVPB SCH ×3 (01:02→23:02)
[2020-12-15] MEDS: LORazepam 2 MG/ML SDV VIAL IVPUSH SCH ×4 (01:02→17:52)
[2020-12-15] MEDS: INSULIN SLIDING SCALE (NOVOLOG) 1 VIAL SQ SCH ×4 (06:06→21:16)
[2020-12-15 07:18] LABS: BASO % 0.7 % (0-2.0); HEMATOCRIT 37.5 % (35.4-49); HEMOGLOBIN 12.6 GM/dL (11.7-16.9); MCH 30.6 pg (25.7-33.7); MCHC 33.6 g/dl (32.0-35.9); MEAN PLT VOLUME 9.2 fl (7.5-11.1); MONO % 3.2 % (3.8-10.2); NEUT % 94.1 % (42.8-82.8); PLATELET COUNT 165 K/MM3 (134-434); RBC 4.12 M/mm3 (4.00-5.60); RDW 13.7 % (11.9-15.9); WHITE BLOOD COUNT 20.5 K/mm3 (4.0-10.0)
[2020-12-15 07:40] LABS: ALBUMIN 2.5 g/dl (3.4-5.0)
[2020-12-15 07:41] LABS: BLOOD UREA NITROGEN 103.8 mg/dL (7-18); CALCIUM 7.1 mg/dL (8.5-10.1); MAGNESIUM 3.1 mg/dL (1.8-2.4)
[2020-12-15 07:44] LABS: CREATININE 2.2 mg/dL (0.55-1.3); PHOSPHOROUS 4.9 mg/dL (2.5-4.9)
[2020-12-15 07:45] LABS: BILIRUBIN,TOTAL 0.7 mg/dL (0.2-1)
[2020-12-15 07:46] LABS: TOT PROT 5.2 g/dl (6.4-8.2)
[2020-12-15] MEDS ORDERED: CALCIUM GLUCONATE 10% - 1,000 MG/10 ML VIAL IVPUSH ONE (08:31)
[2020-12-15] MEDS ORDERED: SODIUM ZIRCONIUM CYCLOSILICATE (LOKELMA) 5 GM PACKET PO ONE (08:32)
[2020-12-15] MEDS ORDERED: DEXTROSE 50%-WATER - 25 GM/50 ML VIAL IVPUSH ONE ×2 (08:32→18:19)
[2020-12-15] MEDS ORDERED: INSULIN REGULAR HUMAN 100 UNITS/ML *VIAL IVPUSH ONE ×3 (08:32→22:55)
[2020-12-15] MEDS: METOPROLOL TARTRATE 5 MG/5 ML VIAL IVPUSH PRN ×2 (08:50→16:44)
[2020-12-15] MEDS: SODIUM CHLORIDE 0.45% 1,000 ML IV SCH (09:17)
[2020-12-15] MEDS: SEVELAMER CARBONATE 2.4 GM POWDER PACKET PO SCH ×2 (09:17→11:19)
[2020-12-15] MEDS: PROPOFOL 1,000,000 MCG/100 ML VIAL IVPB SCH (09:17)
[2020-12-15] MEDS: AMINO ACIDS/PROTEIN HYDROLYS 30 ML LIQUID.PKT PO SCH ×2 (09:18→17:20)
[2020-12-15] MEDS: SODIUM ZIRCONIUM CYCLOSILICATE (LOKELMA) 5 GM PACKET PO SCH (09:25)
[2020-12-15] MEDS: DEXAMETHASONE SOD PHOSPHATE 4 MG/1 ML VIAL IVPUSH SCH ×2 (09:25→21:16)
[2020-12-15] MEDS: amLODIPine BESYLATE 5 MG TABLET (FP) PO SCH (09:25)
[2020-12-15] MEDS: APIXABAN 2.5 MG TABLET PO SCH ×2 (09:25→21:16)
[2020-12-15] MEDS: FAMOTIDINE 20 MG/50 ML IVPB 20 MG/50 ML MG IVPB SCH ×2 (09:26→21:16)
[2020-12-15] MEDS: METOPROLOL TARTRATE 25 MG TABLET (FP) PO SCH ×2 (09:26→21:17)
[2020-12-15 10:31] LABS: ANISOCYTOSIS 0; MACROCYTOSIS 0; PLATELET ESTIMATE NORMAL
[2020-12-15] MEDS: VECURONIUM BROMIDE 100 MG/100 ML BAG IVPB SCH (11:19)
[2020-12-15] MEDS: FENTANYL NS IVPB 500 MCG/100 ML BAG IVPB SCH ×2 (14:18→17:18)
[2020-12-15 18:07] LABS: CALCIUM 7.4 mg/dL (8.5-10.1)
[2020-12-15 18:08] LABS: ALBUMIN 2.4 g/dl (3.4-5.0); BLOOD UREA NITROGEN 98.8 mg/dL (7-18)
[2020-12-15 18:11] LABS: CREATININE 2.1 mg/dL (0.55-1.3)
[2020-12-15 18:12] LABS: BILIRUBIN,TOTAL 0.6 mg/dL (0.2-1); TOT PROT 5.3 g/dl (6.4-8.2)
[2020-12-15] MEDS ORDERED: DEXTROSE 50%-WATER 25 GM/50 ML DISP.SYRIN ONE (18:15)
[2020-12-15] MEDS ORDERED: CALCIUM GLUCONATE 10% - 1,000 MG/10 ML VIAL ONE (18:16)
[2020-12-15] MEDS ORDERED: CALCIUM GLUCONATE 10% - 1,000 MG/10 ML VIAL IVPB ONE (18:19)
[2020-12-15] MEDS: INSULIN (LEVEMIR) 100 UNITS/ML UNITS SQ SCH (21:16)
[2020-12-15] MEDS: ATORVASTATIN CA 40 MG TABLET (FP) PO SCH (21:16)
[2020-12-15 22:39] LABS: CALCIUM 7.5 mg/dL (8.5-10.1)
[2020-12-15 22:40] LABS: ALBUMIN 2.4 g/dl (3.4-5.0); BLOOD UREA NITROGEN 101.4 mg/dL (7-18)
[2020-12-15 22:43] LABS: CREATININE 2.3 mg/dL (0.55-1.3)
[2020-12-15 22:44] LABS: BILIRUBIN,TOTAL 0.6 mg/dL (0.2-1); TOT PROT 4.8 g/dl (6.4-8.2)
[2020-12-15] MEDS ORDERED: DEXTROSE 50%-WATER - 25 GM/50 ML VIAL IVPUSH PRN (23:01)
[2020-12-16] MEDS: LORazepam 2 MG/ML SDV VIAL IVPUSH SCH ×3 (00:37→18:15)
[2020-12-16] MEDS: VECURONIUM BROMIDE 100 MG/100 ML BAG IVPB SCH ×2 (02:00→09:47)
[2020-12-16] MEDS ORDERED: CALCIUM GLUCONATE 10% - 1,000 MG/10 ML VIAL IVPUSH ONE (02:12)
[2020-12-16 03:01] LABS: BLOOD UREA NITROGEN 96.1 mg/dL (7-18)
[2020-12-16 03:05] LABS: CALCIUM 8.7 mg/dL (8.5-10.1); CREATININE 2.2 mg/dL (0.55-1.3)
[2020-12-16] MEDS: PROPOFOL 1,000,000 MCG/100 ML VIAL IVPB SCH ×6 (05:07→23:00)
[2020-12-16] MEDS: SODIUM CHLORIDE 0.45% 1,000 ML IV SCH (05:08)
[2020-12-16 06:14] LABS: ARTERIAL BLD GAS O2 SATURATION 96.3 mmHg (95-98); ARTERIAL BLOOD GAS BASE EXCESS -5.7 mmol/L (-2-2); ARTERIAL BLOOD GAS PO2 96.8 mmHg (80-100)
[2020-12-16 06:18] LABS: ALLENS TEST POSITIVE; VENT MODE A/C; VENT RATE 24
[2020-12-16] MEDS: INSULIN SLIDING SCALE (NOVOLOG) 1 VIAL SQ SCH ×4 (06:22→21:08)
[2020-12-16 07:02] LABS: BASO % 0.3 % (0-2.0); HEMATOCRIT 37.2 % (35.4-49); HEMOGLOBIN 12.5 GM/dL (11.7-16.9); MCH 30.6 pg (25.7-33.7); MCHC 33.6 g/dl (32.0-35.9); MEAN CELL VOLUME 90.9 fl (80-96); MONO % 3.9 % (3.8-10.2); NEUT % 94.8 % (42.8-82.8); PLATELET COUNT 136 K/MM3 (134-434); RBC 4.09 M/mm3 (4.00-5.60); WHITE BLOOD COUNT 20.8 K/mm3 (4.0-10.0)
[2020-12-16 07:15] LABS: CALCIUM 7.7 mg/dL (8.5-10.1)
[2020-12-16 07:16] LABS: ALBUMIN 2.4 g/dl (3.4-5.0); BLOOD UREA NITROGEN 96.8 mg/dL (7-18)
[2020-12-16 07:19] LABS: CREATININE 2.1 mg/dL (0.55-1.3); PHOSPHOROUS 5.1 mg/dL (2.5-4.9)
[2020-12-16 07:21] LABS: BILIRUBIN,TOTAL 0.8 mg/dL (0.2-1); TOT PROT 5.2 g/dl (6.4-8.2)
[2020-12-16] MEDS: FENTANYL NS IVPB 500 MCG/100 ML BAG IVPB SCH ×3 (08:29→20:00)
[2020-12-16 08:40] LABS: ANISOCYTOSIS 0; MACROCYTOSIS 0; PLATELET ESTIMATE DECREASED
[2020-12-16] MEDS: amLODIPine BESYLATE 5 MG TABLET (FP) PO SCH (09:36)
[2020-12-16] MEDS: APIXABAN 2.5 MG TABLET PO SCH ×2 (09:36→21:03)
[2020-12-16] MEDS: METOPROLOL TARTRATE 25 MG TABLET (FP) PO SCH ×3 (09:36→23:42)
[2020-12-16] MEDS: SODIUM ZIRCONIUM CYCLOSILICATE (LOKELMA) 5 GM PACKET PO SCH (09:36)
[2020-12-16] MEDS: DEXAMETHASONE SOD PHOSPHATE 4 MG/1 ML VIAL IVPUSH SCH ×2 (09:37→21:02)
[2020-12-16] MEDS: FAMOTIDINE 20 MG/50 ML IVPB 20 MG/50 ML MG IVPB SCH ×2 (09:37→21:02)
[2020-12-16] MEDS: AMINO ACIDS/PROTEIN HYDROLYS 30 ML LIQUID.PKT PO SCH ×2 (09:37→18:22)
[2020-12-16] MEDS: SODIUM BICARBONATE 8.4% - 50 MEQ in SODIUM CHLORIDE 0.45% 1,000 ML IV SCH ×2 (11:13→21:02)
[2020-12-16] MEDS: ATORVASTATIN CA 40 MG TABLET (FP) PO SCH (21:03)
[2020-12-16] MEDS ORDERED: cefTRIAXone SODIUM 1 GM VIAL ONE (21:04)
[2020-12-16] MEDS: CEFTRIAXONE 1 GM in DEXTROSE 5%-WATER - 50 ML IVPB SCH (21:04)
[2020-12-16] MEDS ORDERED: DEXTROSE 5%-WATER - 50 ML IVPB ONE (21:04)
[2020-12-16] MEDS: INSULIN (LEVEMIR) 100 UNITS/ML UNITS SQ SCH (21:07)
[2020-12-16] MEDS: NOREPINEPHRINE BITARTRATE 8,000 MCG/500 ML BAG IVPB SCH (22:46)
[2020-12-17] MEDS ORDERED: hydrALAZINE HCL 20 MG/ML VIAL IVPUSH ONE (00:04)
[2020-12-17] MEDS: FENTANYL NS IVPB 500 MCG/100 ML BAG IVPB SCH ×5 (01:00→21:21)
[2020-12-17] MEDS: PROPOFOL 1,000,000 MCG/100 ML VIAL IVPB SCH ×4 (04:00→18:12)
[2020-12-17] MEDS: INSULIN SLIDING SCALE (NOVOLOG) 1 VIAL SQ SCH ×4 (06:21→21:58)
[2020-12-17 07:08] LABS: BASO % 0.1 % (0-2.0); HEMATOCRIT 33.9 % (35.4-49); HEMOGLOBIN 11.4 GM/dL (11.7-16.9); LYMPH % 1.5 % (8-40); MCH 30.7 pg (25.7-33.7); MCHC 33.7 g/dl (32.0-35.9); MEAN CELL VOLUME 91.1 fl (80-96); MEAN PLT VOLUME 9.7 fl (7.5-11.1); MONO % 3.2 % (3.8-10.2); NEUT % 95.2 % (42.8-82.8); PLATELET COUNT 85 K/MM3 (134-434); RBC 3.72 M/mm3 (4.00-5.60); RDW 13.8 % (11.9-15.9)
[2020-12-17 07:13] LABS: CHLORIDE 104 mmol/L (98-107); SODIUM 134 mmol/L (136-145)
[2020-12-17 07:19] LABS: CALCIUM 7.2 mg/dL (8.5-10.1)
[2020-12-17 07:20] LABS: ALBUMIN 2.1 g/dl (3.4-5.0); CO2 25 mmol/L (21-32); GLUCOSE,RANDOM 274 mg/dL (74-106); MAGNESIUM 3.1 mg/dL (1.8-2.4)
[2020-12-17 07:21] LABS: WHITE BLOOD COUNT 31.5 K/mm3 (4.0-10.0)
[2020-12-17 07:23] LABS: CREATININE 1.8 mg/dL (0.55-1.3); PHOSPHOROUS 5.6 mg/dL (2.5-4.9); SGOT/AST 35 U/L (15-37); SGPT/ALT 61 U/L (13-61)
[2020-12-17 07:24] LABS: BILIRUBIN,TOTAL 0.5 mg/dL (0.2-1); TOT PROT 4.6 g/dl (6.4-8.2)
[2020-12-17 07:26] LABS: ALK PHOS 71 U/L (45-117)
[2020-12-17 07:43] LABS: ANION GAP 6 MMOL/L (8-16); BLOOD UREA NITROGEN 104.5 mg/dL (7-18)
[2020-12-17] MEDS: AMINO ACIDS/PROTEIN HYDROLYS 30 ML LIQUID.PKT PO SCH ×2 (08:30→16:54)
[2020-12-17] MEDS ORDERED: MAGNESIUM CITRATE 300 ML BOTTLE PO ONE (09:00)
[2020-12-17] MEDS ORDERED: INSULIN REGULAR HUMAN 100 UNITS/ML *VIAL IVPUSH ONE (09:00)
[2020-12-17] MEDS ORDERED: DEXTROSE 50%-WATER - 25 GM/50 ML VIAL IVPUSH ONE (09:00)
[2020-12-17] MEDS ORDERED: FUROSEMIDE 40 MG/4 ML INJECTABLE VIAL IVPUSH ONE ×2 (09:00→18:00)
[2020-12-17] MEDS ORDERED: CALCIUM GLUCONATE 10% - 1,000 MG/10 ML VIAL IVPUSH ONE (09:00)
[2020-12-17] MEDS ORDERED: DEXTROSE 50%-WATER 25 GM/50 ML DISP.SYRIN ONE (09:48)
[2020-12-17] MEDS ORDERED: DEXTROSE 5%-WATER - 50 ML IVPB ONE (09:50)
[2020-12-17] MEDS ORDERED: cefTRIAXone SODIUM 1 GM VIAL ONE (09:50)
[2020-12-17] MEDS: DEXAMETHASONE SOD PHOSPHATE 4 MG/1 ML VIAL IVPUSH SCH ×2 (09:59→21:20)
[2020-12-17 10:06] LABS: ANISOCYTOSIS 0; MACROCYTOSIS 0; PLATELET ESTIMATE DECREASED
[2020-12-17] MEDS: SODIUM ZIRCONIUM CYCLOSILICATE (LOKELMA) 5 GM PACKET PO SCH (10:09)
[2020-12-17] MEDS: METOPROLOL TARTRATE 25 MG TABLET (FP) PO SCH ×2 (10:10→22:04)
[2020-12-17] MEDS: CEFTRIAXONE 1 GM in DEXTROSE 5%-WATER - 50 ML IVPB SCH (10:11)
[2020-12-17] MEDS: amLODIPine BESYLATE 5 MG TABLET (FP) PO SCH (10:11)
[2020-12-17] MEDS: FAMOTIDINE 20 MG/50 ML IVPB 20 MG/50 ML MG IVPB SCH ×2 (10:11→21:21)
[2020-12-17] MEDS: APIXABAN 2.5 MG TABLET PO SCH ×2 (10:20→21:20)
[2020-12-17] MEDS: SODIUM BICARBONATE 8.4% - 50 MEQ in SODIUM CHLORIDE 0.45% 1,000 ML IV SCH ×3 (10:21→21:19)
[2020-12-17] MEDS ORDERED: PT OWN MED DRAWER 7, Y5N ONE ×2 (10:40→21:12)
[2020-12-17] MEDS ORDERED: AMIODARONE HCL 150 MG/3 ML VIAL ONE (11:51)
[2020-12-17] MEDS ORDERED: AMIODARONE IN DEXTROSE,ISO-OSM 360 MG/200 ML BAG ONE (12:01)
[2020-12-17] MEDS ORDERED: AMIODARONE IN DEXTROSE,ISO-OSM 360 MG/200 ML BAG IVPB ONE (12:40)
[2020-12-17] MEDS ORDERED: AMIODARONE IN DEXTROSE,ISO-OSM 360 MG/200 ML BAG IVPB SCH (13:00)
[2020-12-17] MEDS ORDERED: AMIODARONE HCL 150 MG/3 ML VIAL IVPUSH ONE (13:00)
[2020-12-17 14:23] LABS: CHLORIDE 102 mmol/L (98-107); SODIUM 134 mmol/L (136-145)
[2020-12-17 14:25] LABS: ANION GAP 8 MMOL/L (8-16); CALCIUM 7.9 mg/dL (8.5-10.1); CO2 24 mmol/L (21-32); GLUCOSE,RANDOM 319 mg/dL (74-106)
[2020-12-17 14:29] LABS: CREATININE 1.9 mg/dL (0.55-1.3)
[2020-12-17 14:38] LABS: BLOOD UREA NITROGEN 104.1 mg/dL (7-18)
[2020-12-17] MEDS: SENNOSIDES 8.8 MG/5 ML BULK BOTTLE PO SCH ×2 (16:00→21:59)
[2020-12-17] MEDS ORDERED: LACTULOSE 20 GM/30 ML UDC (FOR ORAL USE ONLY) PO PRN (16:30)
[2020-12-17] MEDS: LACTULOSE 20 GM/30 ML UDC (FOR ORAL USE ONLY) PO SCH ×2 (17:28→21:19)
[2020-12-17] MEDS ORDERED: DEXTROSE 5%-WATER 100 ML IVPB ONE (18:09)
[2020-12-17] MEDS ORDERED: MEROPENEM 1 GM VIAL (RESTRICTED TO ID) IVPB ONE (18:09)
[2020-12-17] MEDS: MEROPENEM 1 GM in DEXTROSE 5%-WATER 100 ML IVPB SCH (18:11)
[2020-12-17] MEDS: ATORVASTATIN CA 40 MG TABLET (FP) PO SCH (21:20)
[2020-12-17] MEDS: INSULIN (LEVEMIR) 100 UNITS/ML UNITS SQ SCH (21:58)
[2020-12-17] MEDS: NOREPINEPHRINE BITARTRATE 8,000 MCG/500 ML BAG IVPB SCH (23:30)
[2020-12-18] MEDS ORDERED: INSULIN (NOVOLOG) ASPART 100 UNITS/ML 10ML VIAL ONE (00:40)
[2020-12-18] MEDS: METOPROLOL TARTRATE 5 MG/5 ML VIAL IVPUSH PRN ×2 (04:00→10:31)
[2020-12-18 05:58] LABS: ARTERIAL BLD GAS O2 SATURATION 97.6 mmHg (95-98); ARTERIAL BLOOD GAS BASE EXCESS -3.3 mmol/L (-2-2); ARTERIAL BLOOD GAS PO2 112.5 mmHg (80-100); ARTERIAL BLOOD GAS pH 7.287 (7.350-7.450)
[2020-12-18 05:59] LABS: ALLENS TEST POSITIVE; VENT MODE A/C; VENT RATE 24
[2020-12-18] MEDS ORDERED: DEXTROSE 5%-WATER 100 ML IVPB ONE ×2 (06:04→17:07)
[2020-12-18] MEDS ORDERED: MEROPENEM 1 GM VIAL (RESTRICTED TO ID) IVPB ONE ×2 (06:04→17:07)
[2020-12-18] MEDS: MEROPENEM 1 GM in DEXTROSE 5%-WATER 100 ML IVPB SCH ×2 (06:08→17:25)
[2020-12-18] MEDS: INSULIN SLIDING SCALE (NOVOLOG) 1 VIAL SQ SCH ×4 (06:20→21:21)
[2020-12-18 06:59] LABS: HEMATOCRIT 35.4 % (35.4-49); MCH 31.1 pg (25.7-33.7); MCHC 33.8 g/dl (32.0-35.9); MEAN CELL VOLUME 91.9 fl (80-96); MEAN PLT VOLUME 10.3 fl (7.5-11.1); PLATELET COUNT 48 K/MM3 (134-434); RBC 3.85 M/mm3 (4.00-5.60); RDW 13.8 % (11.9-15.9); WHITE BLOOD COUNT 22.5 K/mm3 (4.0-10.0)
[2020-12-18 07:13] LABS: CHLORIDE 100 mmol/L (98-107); SODIUM 135 mmol/L (136-145)
[2020-12-18 07:16] LABS: GLUCOSE,RANDOM 299 mg/dL (74-106)
[2020-12-18 07:19] LABS: CREATININE 2.1 mg/dL (0.55-1.3); PHOSPHOROUS 5.9 mg/dL (2.5-4.9); SGOT/AST 54 U/L (15-37); SGPT/ALT 116 U/L (13-61)
[2020-12-18 07:20] LABS: BILIRUBIN,TOTAL 0.5 mg/dL (0.2-1); TOT PROT 5.2 g/dl (6.4-8.2)
[2020-12-18 07:25] LABS: CALCIUM 7.3 mg/dL (8.5-10.1); CO2 27 mmol/L (21-32)
[2020-12-18 07:26] LABS: ALBUMIN 2.3 g/dl (3.4-5.0); MAGNESIUM 3.4 mg/dL (1.8-2.4)
[2020-12-18 07:27] LABS: ALK PHOS 113 U/L (45-117); ANION GAP 8 MMOL/L (8-16); BLOOD UREA NITROGEN 120.9 mg/dL (7-18)
[2020-12-18] MEDS ORDERED: INSULIN REGULAR HUMAN 100 UNITS/ML *VIAL IVPUSH ONE (07:45)
[2020-12-18] MEDS ORDERED: CALCIUM GLUCONATE 10% - 1,000 MG/10 ML VIAL IVPUSH ONE (07:45)
[2020-12-18] MEDS ORDERED: DEXTROSE 50%-WATER - 25 GM/50 ML VIAL IVPUSH ONE (07:45)
[2020-12-18 08:17] LABS: BILIRUBIN,DIRECT 0.2 mg/dL (0.0-0.2)
[2020-12-18] MEDS ORDERED: DEXTROSE 50%-WATER 25 GM/50 ML DISP.SYRIN ONE (08:44)
[2020-12-18] MEDS: PROPOFOL 1,000,000 MCG/100 ML VIAL IVPB SCH ×4 (08:50→17:27)
[2020-12-18] MEDS: AMINO ACIDS/PROTEIN HYDROLYS 30 ML LIQUID.PKT PO SCH ×2 (08:51→17:26)
[2020-12-18] MEDS: SODIUM ZIRCONIUM CYCLOSILICATE (LOKELMA) 5 GM PACKET PO SCH ×3 (09:31→21:22)
[2020-12-18] MEDS: APIXABAN 2.5 MG TABLET PO SCH ×2 (09:31→21:22)
[2020-12-18] MEDS: LACTULOSE 20 GM/30 ML UDC (FOR ORAL USE ONLY) PO SCH ×4 (09:31→21:22)
[2020-12-18] MEDS: DEXAMETHASONE SOD PHOSPHATE 4 MG/1 ML VIAL IVPUSH SCH ×2 (09:32→21:21)
[2020-12-18] MEDS: FAMOTIDINE 20 MG/50 ML IVPB 20 MG/50 ML MG IVPB SCH ×2 (09:32→21:22)
[2020-12-18] MEDS: METOPROLOL TARTRATE 25 MG TABLET (FP) PO SCH ×2 (09:32→21:22)
[2020-12-18] MEDS: amLODIPine BESYLATE 5 MG TABLET (FP) PO SCH (09:32)
[2020-12-18] MEDS: SODIUM BICARBONATE 8.4% - 50 MEQ in SODIUM CHLORIDE 0.45% 1,000 ML IV SCH ×2 (10:00→17:28)
[2020-12-18] MEDS: FENTANYL NS IVPB 500 MCG/100 ML BAG IVPB SCH ×2 (10:14→14:38)
[2020-12-18] MEDS: AMIODARONE IN DEXTROSE,ISO-OSM 360 MG/200 ML BAG IVPB SCH (11:12)
[2020-12-18] MEDS ORDERED: SODIUM CHLORIDE 0.9% 500 ML INFUS.BAG IV ONE (11:33)
[2020-12-18] MEDS ORDERED: FUROSEMIDE 40 MG/4 ML INJECTABLE VIAL IVPUSH ONE (11:45)
[2020-12-18 14:30] LABS: CHLORIDE 102 mmol/L (98-107)
[2020-12-18 14:31] LABS: CALCIUM 7.6 mg/dL (8.5-10.1)
[2020-12-18 14:32] LABS: CO2 28 mmol/L (21-32); GLUCOSE,RANDOM 284 mg/dL (74-106)
[2020-12-18 14:35] LABS: CREATININE 2.1 mg/dL (0.55-1.3)
[2020-12-18 14:40] LABS: ANION GAP 6 MMOL/L (8-16); BLOOD UREA NITROGEN 114.5 mg/dL (7-18); SODIUM 136 mmol/L (136-145)
[2020-12-18] MEDS ORDERED: SODIUM BICARBONATE 8.4% - 50 MEQ in SODIUM CHLORIDE 0.45% 1,000 ML IV SCH (15:17)
[2020-12-18] MEDS ORDERED: SODIUM CHLORIDE 1,000 ML IV STA (15:17)
[2020-12-18] MEDS ORDERED: LABETALOL HCL 5 MG/1 ML (100MG/20 ML VIAL) IVPUSH ONE (16:28)
[2020-12-18] MEDS: INSULIN (LEVEMIR) 100 UNITS/ML UNITS SQ SCH (21:20)
[2020-12-18] MEDS: ATORVASTATIN CA 40 MG TABLET (FP) PO SCH (21:22)
[2020-12-18 22:22] LABS: CHLORIDE 104 mmol/L (98-107); SODIUM 137 mmol/L (136-145)
[2020-12-18 22:24] LABS: CO2 28 mmol/L (21-32); GLUCOSE,RANDOM 300 mg/dL (74-106)
[2020-12-18 22:27] LABS: ANION GAP 5 MMOL/L (8-16); BLOOD UREA NITROGEN 114.6 mg/dL (7-18); CREATININE 2.1 mg/dL (0.55-1.3)
[2020-12-18] MEDS: SENNOSIDES 8.8 MG/5 ML BULK BOTTLE PO SCH (22:38)
[2020-12-19] MEDS ORDERED: DEXTROSE 50%-WATER - 25 GM/50 ML VIAL IVPUSH ONE ×2 (01:23→08:15)
[2020-12-19] MEDS ORDERED: INSULIN REGULAR HUMAN 100 UNITS/ML *VIAL IVPUSH ONE ×2 (01:23→08:15)
[2020-12-19] MEDS ORDERED: CALCIUM GLUCONATE 10% - 1,000 MG/10 ML VIAL IVPUSH ONE ×2 (01:24→08:15)
[2020-12-19] MEDS ORDERED: DEXTROSE 50%-WATER 25 GM/50 ML DISP.SYRIN ONE ×2 (02:10→08:36)
[2020-12-19] MEDS ORDERED: MEROPENEM 1 GM VIAL (RESTRICTED TO ID) IVPB ONE ×2 (05:26→17:32)
[2020-12-19] MEDS ORDERED: DEXTROSE 5%-WATER 100 ML IVPB ONE ×2 (05:26→17:32)
[2020-12-19] MEDS: PROPOFOL 1,000,000 MCG/100 ML VIAL IVPB SCH ×4 (05:30→22:00)
[2020-12-19] MEDS: MEROPENEM 1 GM in DEXTROSE 5%-WATER 100 ML IVPB SCH ×2 (05:30→17:33)
[2020-12-19] MEDS: FENTANYL NS IVPB 500 MCG/100 ML BAG IVPB SCH ×4 (05:31→23:26)
[2020-12-19] MEDS: SODIUM BICARBONATE 8.4% - 50 MEQ in SODIUM CHLORIDE 0.45% 1,000 ML IV SCH (05:31)
[2020-12-19] MEDS: INSULIN SLIDING SCALE (NOVOLOG) 1 VIAL SQ SCH ×4 (06:11→21:10)
[2020-12-19 06:20] LABS: BASO % 0.2 % (0-2.0); HEMATOCRIT 31.4 % (35.4-49); HEMOGLOBIN 10.6 GM/dL (11.7-16.9); LYMPH % 1.6 % (8-40); MCH 31.4 pg (25.7-33.7); MCHC 33.9 g/dl (32.0-35.9); MEAN CELL VOLUME 92.5 fl (80-96); MEAN PLT VOLUME 10.7 fl (7.5-11.1); MONO % 6.2 % (3.8-10.2); PLATELET COUNT 48 K/MM3 (134-434); RBC 3.39 M/mm3 (4.00-5.60); RDW 14.3 % (11.9-15.9); WHITE BLOOD COUNT 17.6 K/mm3 (4.0-10.0)
[2020-12-19 06:32] LABS: CHLORIDE 105 mmol/L (98-107); SODIUM 139 mmol/L (136-145)
[2020-12-19 06:35] LABS: CO2 31 mmol/L (21-32); GLUCOSE,RANDOM 295 mg/dL (74-106)
[2020-12-19 06:38] LABS: CREATININE 2.2 mg/dL (0.55-1.3); SGOT/AST 52 U/L (15-37); SGPT/ALT 134 U/L (13-61)
[2020-12-19 06:39] LABS: BILIRUBIN,TOTAL 0.5 mg/dL (0.2-1)
[2020-12-19 06:40] LABS: TOT PROT 4.4 g/dl (6.4-8.2)
[2020-12-19 06:41] LABS: ARTERIAL BLD GAS O2 SATURATION 96.4 mmHg (95-98); ARTERIAL BLOOD GAS BASE EXCESS -3.9 mmol/L (-2-2); ARTERIAL BLOOD GAS PO2 102.9 mmHg (80-100); ARTERIAL BLOOD GAS pH 7.217 (7.350-7.450)
[2020-12-19 06:41] LABS: ALK PHOS 95 U/L (45-117)
[2020-12-19 06:54] LABS: ALLENS TEST POSITIVE; VENT MODE V-A/C; VENT RATE 24
[2020-12-19 07:01] LABS: ANION GAP 3 MMOL/L (8-16); BLOOD UREA NITROGEN 123.9 mg/dL (7-18); CALCIUM 6.9 mg/dL (8.5-10.1)
[2020-12-19] MEDS ORDERED: SODIUM ZIRCONIUM CYCLOSILICATE (LOKELMA) 5 GM PACKET PO ONE (08:15)
[2020-12-19] MEDS: AMINO ACIDS/PROTEIN HYDROLYS 30 ML LIQUID.PKT PO SCH ×2 (08:51→17:33)
[2020-12-19] MEDS: DEXAMETHASONE SOD PHOSPHATE 4 MG/1 ML VIAL IVPUSH SCH ×2 (09:00→21:18)
[2020-12-19] MEDS: FAMOTIDINE 20 MG/50 ML IVPB 20 MG/50 ML MG IVPB SCH ×2 (09:01→21:18)
[2020-12-19] MEDS: SODIUM ZIRCONIUM CYCLOSILICATE (LOKELMA) 5 GM PACKET PO SCH ×2 (09:04→21:18)
[2020-12-19] MEDS: APIXABAN 2.5 MG TABLET PO SCH ×2 (09:04→21:17)
[2020-12-19] MEDS: METOPROLOL TARTRATE 25 MG TABLET (FP) PO SCH ×3 (09:12→22:33)
[2020-12-19] MEDS: LACTULOSE 20 GM/30 ML UDC (FOR ORAL USE ONLY) PO SCH ×4 (09:12→21:17)
[2020-12-19] MEDS: amLODIPine BESYLATE 5 MG TABLET (FP) PO SCH (09:12)
[2020-12-19 09:27] LABS: ANISOCYTOSIS 1+; MACROCYTOSIS 1+; PLATELET ESTIMATE DECREASED
[2020-12-19] MEDS ORDERED: SODIUM CHLORIDE 250 ML IV PRN (13:41)
[2020-12-19] MEDS: SODIUM CHLORIDE 0.45% 1,000 ML IV SCH (13:45)
[2020-12-19] MEDS ORDERED: PT OWN MED DRAWER 7, Y5N ONE ×2 (14:00→21:13)
[2020-12-19] MEDS: AMIODARONE IN DEXTROSE,ISO-OSM 360 MG/200 ML BAG IVPB SCH (14:10)
[2020-12-19 15:46] LABS: CHLORIDE 106 mmol/L (98-107); SODIUM 141 mmol/L (136-145)
[2020-12-19 15:47] LABS: CALCIUM 7.1 mg/dL (8.5-10.1)
[2020-12-19 15:48] LABS: ANION GAP 4 MMOL/L (8-16); CO2 31 mmol/L (21-32); GLUCOSE,RANDOM 234 mg/dL (74-106)
[2020-12-19 16:00] LABS: BLOOD UREA NITROGEN 113.8 mg/dL (7-18)
[2020-12-19] MEDS: METOPROLOL TARTRATE 5 MG/5 ML VIAL IVPUSH PRN ×2 (16:11→19:25)
[2020-12-19] MEDS ORDERED: FENTANYL NS IVPB 500 MCG/100 ML BAG IVPB ONE (19:05)
[2020-12-19] MEDS: NOREPINEPHRINE BITARTRATE 8,000 MCG/500 ML BAG IVPB SCH ×2 (20:28→23:26)
[2020-12-19] MEDS: ATORVASTATIN CA 40 MG TABLET (FP) PO SCH (21:18)
[2020-12-19] MEDS: SENNOSIDES 8.8 MG/5 ML BULK BOTTLE PO SCH (21:18)
[2020-12-19] MEDS: INSULIN (LEVEMIR) 100 UNITS/ML UNITS SQ SCH (21:19)
[2020-12-20] MEDS ORDERED: FENTANYL NS IVPB 500 MCG/100 ML BAG IVPB ONE ×2 (00:06→05:48)
[2020-12-20] MEDS ORDERED: DEXTROSE 5%-WATER 100 ML IVPB ONE ×2 (05:39→15:44)
[2020-12-20] MEDS ORDERED: MEROPENEM 1 GM VIAL (RESTRICTED TO ID) IVPB ONE ×2 (05:39→15:44)
[2020-12-20] MEDS: MEROPENEM 1 GM in DEXTROSE 5%-WATER 100 ML IVPB SCH ×2 (05:45→16:45)
[2020-12-20] MEDS: INSULIN SLIDING SCALE (NOVOLOG) 1 VIAL SQ SCH ×4 (06:18→21:17)
[2020-12-20] MEDS: FENTANYL NS IVPB 500 MCG/100 ML BAG IVPB SCH ×2 (06:19→12:15)
[2020-12-20] MEDS: PROPOFOL 1,000,000 MCG/100 ML VIAL IVPB SCH ×4 (06:19→20:30)
[2020-12-20] MEDS: METOPROLOL TARTRATE 5 MG/5 ML VIAL IVPUSH PRN (07:18)
[2020-12-20 08:35] LABS: BASO % 0.5 % (0-2.0); HEMATOCRIT 32.2 % (35.4-49); HEMOGLOBIN 10.8 GM/dL (11.7-16.9); LYMPH % 1.4 % (8-40); MCHC 33.5 g/dl (32.0-35.9); MEAN CELL VOLUME 92.6 fl (80-96); MEAN PLT VOLUME 11.7 fl (7.5-11.1); NEUT % 94.1 % (42.8-82.8); PLATELET COUNT 64 K/MM3 (134-434); RBC 3.48 M/mm3 (4.00-5.60); RDW 14.7 % (11.9-15.9); WHITE BLOOD COUNT 24.5 K/mm3 (4.0-10.0)
[2020-12-20] MEDS: AMINO ACIDS/PROTEIN HYDROLYS 30 ML LIQUID.PKT PO SCH ×2 (08:58→16:45)
[2020-12-20] MEDS: DEXAMETHASONE SOD PHOSPHATE 4 MG/1 ML VIAL IVPUSH SCH ×2 (09:03→21:18)
[2020-12-20] MEDS: SODIUM ZIRCONIUM CYCLOSILICATE (LOKELMA) 5 GM PACKET PO SCH ×2 (09:04→21:19)
[2020-12-20] MEDS: APIXABAN 2.5 MG TABLET PO SCH (09:04)
[2020-12-20] MEDS: LACTULOSE 20 GM/30 ML UDC (FOR ORAL USE ONLY) PO SCH ×4 (09:04→21:19)
[2020-12-20] MEDS: FAMOTIDINE 20 MG/50 ML IVPB 20 MG/50 ML MG IVPB SCH ×2 (09:05→21:19)
[2020-12-20 09:17] LABS: CALCIUM 7.4 mg/dL (8.5-10.1)
[2020-12-20 09:18] LABS: ALBUMIN 2.2 g/dl (3.4-5.0); BLOOD UREA NITROGEN 102.9 mg/dL (7-18); MAGNESIUM 3.1 mg/dL (1.8-2.4)
[2020-12-20 09:21] LABS: CREATININE 1.9 mg/dL (0.55-1.3)
[2020-12-20 09:22] LABS: TOT PROT 4.8 g/dl (6.4-8.2)
[2020-12-20 09:25] LABS: BILIRUBIN,TOTAL 1.9 mg/dL (0.2-1)
[2020-12-20] MEDS: METOPROLOL TARTRATE 25 MG TABLET (FP) PO SCH ×3 (10:35→21:18)
[2020-12-20] MEDS: amLODIPine BESYLATE 5 MG TABLET (FP) PO SCH ×2 (10:36→11:15)
[2020-12-20 12:59] LABS: ANISOCYTOSIS 1+; MACROCYTOSIS 0; PLATELET ESTIMATE DECREASED
[2020-12-20] MEDS ORDERED: INSULIN (NOVOLOG) ASPART 100 UNITS/ML 10ML VIAL ONE (13:46)
[2020-12-20] MEDS ORDERED: VECURONIUM BROMIDE 20 MG/20 ML VIAL ONE (13:46)
[2020-12-20] MEDS ORDERED: BENZOIN/ALOE VERA/STORAX/TOLU 58 ML BOTTLE ONE (13:54)
[2020-12-20] MEDS ORDERED: VECURONIUM BROMIDE 50 MG/50 ML VIAL IVPUSH ONE (14:04)
[2020-12-20] MEDS ORDERED: PT OWN MED DRAWER 7, Y5N ONE ×2 (15:19→21:09)
[2020-12-20] MEDS: SODIUM CHLORIDE 0.45% 1,000 ML IV SCH ×2 (15:23→20:00)
[2020-12-20] MEDS: VECURONIUM BROMIDE 100 MG/100 ML BAG IVPB SCH (16:23)
[2020-12-20 16:24] LABS: ARTERIAL BLD GAS O2 SATURATION 93.3 mmHg (95-98); ARTERIAL BLOOD GAS BASE EXCESS 1.6 mmol/L (-2-2); ARTERIAL BLOOD GAS PO2 78.9 mmHg (80-100); ARTERIAL BLOOD GAS pH 7.252 (7.350-7.450)
[2020-12-20 16:26] LABS: ALLENS TEST POSITIVE
[2020-12-20 16:27] LABS: VENT MODE A/C; VENT RATE 24
[2020-12-20] MEDS: SENNOSIDES 8.8 MG/5 ML BULK BOTTLE PO SCH (21:18)
[2020-12-20] MEDS: ATORVASTATIN CA 40 MG TABLET (FP) PO SCH (21:18)
[2020-12-20] MEDS: INSULIN (LEVEMIR) 100 UNITS/ML UNITS SQ SCH (21:19)
[2020-12-20] MEDS: NOREPINEPHRINE BITARTRATE 8,000 MCG/500 ML BAG IVPB SCH (23:56)
[2020-12-21] MEDS ORDERED: APIXABAN 5 MG TABLET PO SCH ×3 (00:30→22:00)
[2020-12-21] MEDS ORDERED: MEROPENEM 1 GM VIAL (RESTRICTED TO ID) IVPB ONE ×2 (01:19→16:37)
[2020-12-21] MEDS ORDERED: DEXTROSE 5%-WATER 100 ML IVPB ONE ×2 (01:20→16:37)
[2020-12-21] MEDS: FENTANYL NS IVPB 500 MCG/100 ML BAG IVPB SCH ×3 (05:21→21:10)
[2020-12-21] MEDS: MEROPENEM 1 GM in DEXTROSE 5%-WATER 100 ML IVPB SCH ×2 (05:21→17:39)
[2020-12-21 05:52] LABS: ARTERIAL BLD GAS O2 SATURATION 93.1 mmHg (95-98); ARTERIAL BLOOD GAS BASE EXCESS -2.4 mmol/L (-2-2); ARTERIAL BLOOD GAS PO2 78.2 mmHg (80-100)
[2020-12-21 06:00] LABS: BASO % 0.3 % (0-2.0); HEMATOCRIT 27.9 % (35.4-49); HEMOGLOBIN 9.5 GM/dL (11.7-16.9); LYMPH % 2.5 % (8-40); MCH 31.4 pg (25.7-33.7); MCHC 34.1 g/dl (32.0-35.9); MEAN CELL VOLUME 92.1 fl (80-96); MEAN PLT VOLUME 11.4 fl (7.5-11.1); MONO % 5.4 % (3.8-10.2); NEUT % 91.8 % (42.8-82.8); PLATELET COUNT 52 K/MM3 (134-434); RBC 3.03 M/mm3 (4.00-5.60); RDW 14.3 % (11.9-15.9); WHITE BLOOD COUNT 17.7 K/mm3 (4.0-10.0)
[2020-12-21] MEDS: INSULIN SLIDING SCALE (NOVOLOG) 1 VIAL SQ SCH ×4 (06:00→21:10)
[2020-12-21 06:05] LABS: INR 1.31 (0.83-1.09)
[2020-12-21 06:07] LABS: ALLENS TEST POSITIVE; VENT MODE A/C; VENT RATE 24
[2020-12-21 06:31] LABS: CHLORIDE 104 mmol/L (98-107); SODIUM 139 mmol/L (136-145)
[2020-12-21 06:35] LABS: ALBUMIN 2.1 g/dl (3.4-5.0); ANION GAP 6 MMOL/L (8-16); CALCIUM 7.2 mg/dL (8.5-10.1); CO2 29 mmol/L (21-32); GLUCOSE,RANDOM 306 mg/dL (74-106); MAGNESIUM 3.2 mg/dL (1.8-2.4)
[2020-12-21 06:38] LABS: PHOSPHOROUS 7.1 mg/dL (2.5-4.9); SGOT/AST 95 U/L (15-37); SGPT/ALT 186 U/L (13-61)
[2020-12-21 06:40] LABS: BILIRUBIN,TOTAL 0.8 mg/dL (0.2-1); TOT PROT 4.4 g/dl (6.4-8.2)
[2020-12-21 06:41] LABS: ALK PHOS 136 U/L (45-117)
[2020-12-21 07:02] LABS: BLOOD UREA NITROGEN 134.6 mg/dL (7-18)
[2020-12-21] MEDS: PROPOFOL 1,000,000 MCG/100 ML VIAL IVPB SCH ×4 (08:30→21:10)
[2020-12-21] MEDS: AMINO ACIDS/PROTEIN HYDROLYS 30 ML LIQUID.PKT PO SCH ×2 (09:00→17:38)
[2020-12-21] MEDS: DEXAMETHASONE SOD PHOSPHATE 4 MG/1 ML VIAL IVPUSH SCH ×2 (09:04→21:07)
[2020-12-21] MEDS: LACTULOSE 20 GM/30 ML UDC (FOR ORAL USE ONLY) PO SCH ×4 (09:06→21:07)
[2020-12-21] MEDS: SODIUM ZIRCONIUM CYCLOSILICATE (LOKELMA) 5 GM PACKET PO SCH ×2 (09:06→21:07)
[2020-12-21] MEDS: amLODIPine BESYLATE 5 MG TABLET (FP) PO SCH (09:08)
[2020-12-21] MEDS: FAMOTIDINE 20 MG/50 ML IVPB 20 MG/50 ML MG IVPB SCH ×2 (09:08→21:07)
[2020-12-21] MEDS: METOPROLOL TARTRATE 25 MG TABLET (FP) PO SCH ×2 (11:00→21:08)
[2020-12-21] MEDS: METOPROLOL TARTRATE 5 MG/5 ML VIAL IVPUSH PRN (11:05)
[2020-12-21 11:14] LABS: ANISOCYTOSIS 0; MACROCYTOSIS 0; PLATELET ESTIMATE DECREASED; TOXIC GRANULATION 2+
[2020-12-21] MEDS ORDERED: FUROSEMIDE 40 MG/4 ML INJECTABLE VIAL IVPUSH ONE (11:15)
[2020-12-21] MEDS ORDERED: AMIODARONE IN DEXTROSE,ISO-OSM 360 MG/200 ML BAG ONE (11:50)
[2020-12-21 15:32] VITALS: BMI 39.4
[2020-12-21 16:13] LABS: HEP B CORE AB, TOT Negative (Negative)
[2020-12-21] MEDS: VECURONIUM BROMIDE 100 MG/100 ML BAG IVPB SCH (16:53)
[2020-12-21] MEDS ORDERED: PT OWN MED DRAWER 7, Y5N ONE (21:05)
[2020-12-21] MEDS: SENNOSIDES 8.8 MG/5 ML BULK BOTTLE PO SCH (21:07)
[2020-12-21] MEDS: ATORVASTATIN CA 40 MG TABLET (FP) PO SCH (21:08)
[2020-12-21] MEDS: APIXABAN 5 MG TABLET PO SCH (21:08)
[2020-12-21] MEDS: INSULIN (LEVEMIR) 100 UNITS/ML UNITS SQ SCH (21:09)
[2020-12-21] MEDS: NOREPINEPHRINE BITARTRATE 8,000 MCG/500 ML BAG IVPB SCH ×2 (22:14→22:54)
[2020-12-22] MEDS ORDERED: DEXTROSE 5%-WATER 100 ML IVPB ONE (00:23)
[2020-12-22] MEDS ORDERED: MEROPENEM 1 GM VIAL (RESTRICTED TO ID) IVPB ONE (00:23)
[2020-12-22] MEDS: MEROPENEM 1 GM in DEXTROSE 5%-WATER 100 ML IVPB SCH (06:04)
[2020-12-22] MEDS: FENTANYL NS IVPB 500 MCG/100 ML BAG IVPB SCH (06:41)
[2020-12-22] MEDS: INSULIN SLIDING SCALE (NOVOLOG) 1 VIAL SQ SCH ×4 (06:41→22:59)
[2020-12-22] MEDS: METOPROLOL TARTRATE 5 MG/5 ML VIAL IVPUSH PRN (08:09)
[2020-12-22] MEDS: AMINO ACIDS/PROTEIN HYDROLYS 30 ML LIQUID.PKT PO SCH ×2 (09:00→17:02)
[2020-12-22 09:21] LABS: BASO % 0.2 % (0-2.0); EOS % 0.1 % (0-4.5); HEMOGLOBIN 9.5 GM/dL (11.7-16.9); LYMPH % 2.1 % (8-40); MCH 31.2 pg (25.7-33.7); MCHC 33.9 g/dl (32.0-35.9); MONO % 5.2 % (3.8-10.2); NEUT % 92.4 % (42.8-82.8); PLATELET COUNT 57 K/MM3 (134-434); RBC 3.04 M/mm3 (4.00-5.60); RDW 14.2 % (11.9-15.9); WHITE BLOOD COUNT 20.8 K/mm3 (4.0-10.0)
[2020-12-22] MEDS: APIXABAN 5 MG TABLET PO SCH ×2 (09:25→21:26)
[2020-12-22] MEDS: DEXAMETHASONE SOD PHOSPHATE 4 MG/1 ML VIAL IVPUSH SCH ×2 (09:25→21:26)
[2020-12-22] MEDS: LACTULOSE 20 GM/30 ML UDC (FOR ORAL USE ONLY) PO SCH ×4 (09:25→21:26)
[2020-12-22] MEDS: amLODIPine BESYLATE 5 MG TABLET (FP) PO SCH (09:27)
[2020-12-22] MEDS: FAMOTIDINE 20 MG/50 ML IVPB 20 MG/50 ML MG IVPB SCH ×2 (09:28→21:27)
[2020-12-22] MEDS: SODIUM ZIRCONIUM CYCLOSILICATE (LOKELMA) 5 GM PACKET PO SCH ×2 (09:52→21:26)
[2020-12-22] MEDS: METOPROLOL TARTRATE 25 MG TABLET (FP) PO SCH ×2 (09:52→21:27)
[2020-12-22 09:54] LABS: CHLORIDE 102 mmol/L (98-107); SODIUM 138 mmol/L (136-145)
[2020-12-22 09:57] LABS: ALBUMIN 2.2 g/dl (3.4-5.0); ANION GAP 9 MMOL/L (8-16); CALCIUM 7.3 mg/dL (8.5-10.1); CO2 27 mmol/L (21-32); GLUCOSE,RANDOM 295 mg/dL (74-106)
[2020-12-22 10:00] LABS: CREATININE 2.3 mg/dL (0.55-1.3); SGPT/ALT 198 U/L (13-61)
[2020-12-22 10:01] LABS: SGOT/AST 111 U/L (15-37)
[2020-12-22 10:02] LABS: TOT PROT 4.6 g/dl (6.4-8.2)
[2020-12-22 10:03] LABS: ALK PHOS 137 U/L (45-117)
[2020-12-22 10:06] LABS: BLOOD UREA NITROGEN 144.3 mg/dL (7-18)
[2020-12-22 10:28] LABS: ANISOCYTOSIS 1+; MACROCYTOSIS 0; PLATELET ESTIMATE DECREASED
[2020-12-22] MEDS: VECURONIUM BROMIDE 100 MG/100 ML BAG IVPB SCH (16:53)
[2020-12-22 18:37] LABS: HEMATOCRIT 27.8 % (35.4-49); HEMOGLOBIN 9.2 GM/dL (11.7-16.9); LYMPH % 2.4 % (8-40); MCH 30.4 pg (25.7-33.7); MCHC 33.1 g/dl (32.0-35.9); MEAN CELL VOLUME 91.7 fl (80-96); MEAN PLT VOLUME 10.6 fl (7.5-11.1); MONO % 5.9 % (3.8-10.2); NEUT % 90.7 % (42.8-82.8); PLATELET COUNT 62 K/MM3 (134-434); RBC 3.03 M/mm3 (4.00-5.60); RDW 14.4 % (11.9-15.9); WHITE BLOOD COUNT 22.3 K/mm3 (4.0-10.0)
[2020-12-22 19:00] LABS: CHLORIDE 102 mmol/L (98-107); SODIUM 138 mmol/L (136-145)
[2020-12-22 19:02] LABS: ALBUMIN 2.1 g/dl (3.4-5.0); ANION GAP 8 MMOL/L (8-16); CALCIUM 7.4 mg/dL (8.5-10.1); CO2 27 mmol/L (21-32); GLUCOSE,RANDOM 287 mg/dL (74-106)
[2020-12-22 19:05] LABS: SGOT/AST 95 U/L (15-37); SGPT/ALT 198 U/L (13-61)
[2020-12-22 19:06] LABS: CREATININE 2.3 mg/dL (0.55-1.3)
[2020-12-22 19:07] LABS: BILIRUBIN,TOTAL 0.6 mg/dL (0.2-1); TOT PROT 4.5 g/dl (6.4-8.2)
[2020-12-22 19:08] LABS: ALK PHOS 140 U/L (45-117)
[2020-12-22 19:14] LABS: BLOOD UREA NITROGEN 160.4 mg/dL (7-18)
[2020-12-22 19:56] LABS: ANISOCYTOSIS 1+; MACROCYTOSIS 0; PLATELET ESTIMATE DECREASED
[2020-12-22] MEDS: ATORVASTATIN CA 40 MG TABLET (FP) PO SCH (21:26)
[2020-12-22] MEDS: SENNOSIDES 8.8 MG/5 ML BULK BOTTLE PO SCH (21:28)
[2020-12-22] MEDS: PROPOFOL 1,000,000 MCG/100 ML VIAL IVPB SCH (21:50)
[2020-12-22] MEDS: NOREPINEPHRINE BITARTRATE 8,000 MCG/500 ML BAG IVPB SCH (22:45)
[2020-12-22] MEDS: INSULIN (LEVEMIR) 100 UNITS/ML UNITS SQ SCH (22:59)
[2020-12-23] MEDS: INSULIN SLIDING SCALE (NOVOLOG) 1 VIAL SQ SCH ×4 (06:23→23:18)
[2020-12-23 06:46] LABS: BASO % 0.3 % (0-2.0); HEMATOCRIT 25.9 % (35.4-49); HEMOGLOBIN 8.6 GM/dL (11.7-16.9); LYMPH % 2.3 % (8-40); MCH 30.8 pg (25.7-33.7); MCHC 33.1 g/dl (32.0-35.9); MEAN PLT VOLUME 11.2 fl (7.5-11.1); MONO % 4.1 % (3.8-10.2); NEUT % 93.3 % (42.8-82.8); PLATELET COUNT 49 K/MM3 (134-434); RBC 2.79 M/mm3 (4.00-5.60); RDW 14.5 % (11.9-15.9); WHITE BLOOD COUNT 19.8 K/mm3 (4.0-10.0)
[2020-12-23 07:03] LABS: CHLORIDE 101 mmol/L (98-107); SODIUM 137 mmol/L (136-145)
[2020-12-23 07:06] LABS: ANION GAP 8 MMOL/L (8-16); CALCIUM 7.2 mg/dL (8.5-10.1); CO2 27 mmol/L (21-32)
[2020-12-23 07:07] LABS: GLUCOSE,RANDOM 285 mg/dL (74-106)
[2020-12-23 07:09] LABS: SGPT/ALT 167 U/L (13-61)
[2020-12-23 07:10] LABS: CREATININE 2.5 mg/dL (0.55-1.3); SGOT/AST 76 U/L (15-37)
[2020-12-23 07:11] LABS: BILIRUBIN,TOTAL 0.7 mg/dL (0.2-1); TOT PROT 4.4 g/dl (6.4-8.2)
[2020-12-23 07:12] LABS: ALK PHOS 144 U/L (45-117)
[2020-12-23 07:22] LABS: BLOOD UREA NITROGEN 160.3 mg/dL (7-18)
[2020-12-23] MEDS: AMINO ACIDS/PROTEIN HYDROLYS 30 ML LIQUID.PKT PO SCH ×2 (08:07→17:33)
[2020-12-23] MEDS: PROPOFOL 1,000,000 MCG/100 ML VIAL IVPB SCH ×4 (08:35→18:18)
[2020-12-23] MEDS: DEXAMETHASONE SOD PHOSPHATE 4 MG/1 ML VIAL IVPUSH SCH ×2 (09:24→21:30)
[2020-12-23] MEDS: LACTULOSE 20 GM/30 ML UDC (FOR ORAL USE ONLY) PO SCH ×4 (09:24→21:30)
[2020-12-23] MEDS: SODIUM ZIRCONIUM CYCLOSILICATE (LOKELMA) 5 GM PACKET PO SCH ×2 (09:25→21:31)
[2020-12-23] MEDS: APIXABAN 5 MG TABLET PO SCH ×2 (09:25→21:30)
[2020-12-23] MEDS: METOPROLOL TARTRATE 25 MG TABLET (FP) PO SCH ×2 (09:26→21:31)
[2020-12-23] MEDS: FAMOTIDINE 20 MG/50 ML IVPB 20 MG/50 ML MG IVPB SCH ×2 (09:26→21:31)
[2020-12-23] MEDS: amLODIPine BESYLATE 5 MG TABLET (FP) PO SCH (09:28)
[2020-12-23] MEDS: FENTANYL NS IVPB 500 MCG/100 ML BAG IVPB SCH ×3 (09:30→13:31)
[2020-12-23 10:12] LABS: ANISOCYTOSIS 1+; MACROCYTOSIS 0; PLATELET ESTIMATE DECREASED
[2020-12-23] MEDS: FUROSEMIDE INJECTION 100 MG in DEXTROSE 5%-WATER - 90 ML IVPB SCH ×2 (12:32→12:35)
[2020-12-23] MEDS: VECURONIUM BROMIDE 100 MG/100 ML BAG IVPB SCH (18:59)
[2020-12-23] MEDS: ATORVASTATIN CA 40 MG TABLET (FP) PO SCH (21:30)
[2020-12-23] MEDS: SENNOSIDES 8.8 MG/5 ML BULK BOTTLE PO SCH (21:31)
[2020-12-23] MEDS: NOREPINEPHRINE BITARTRATE 8,000 MCG/500 ML BAG IVPB SCH (23:00)
[2020-12-23] MEDS: INSULIN (LEVEMIR) 100 UNITS/ML UNITS SQ SCH (23:18)
[2020-12-24 06:17] LABS: BASO % 0.2 % (0-2.0); EOS % 0.1 % (0-4.5); HEMOGLOBIN 8.3 GM/dL (11.7-16.9); LYMPH % 2.4 % (8-40); MCH 30.7 pg (25.7-33.7); MCHC 33.1 g/dl (32.0-35.9); MEAN CELL VOLUME 92.7 fl (80-96); MEAN PLT VOLUME 12.2 fl (7.5-11.1); NEUT % 93.3 % (42.8-82.8); PLATELET COUNT 69 K/MM3 (134-434); RDW 14.6 % (11.9-15.9); WHITE BLOOD COUNT 25.2 K/mm3 (4.0-10.0)
[2020-12-24 06:26] LABS: CHLORIDE 100 mmol/L (98-107); SODIUM 135 mmol/L (136-145)
[2020-12-24 06:30] LABS: ALBUMIN 2.2 g/dl (3.4-5.0); ANION GAP 12 MMOL/L (8-16); CO2 24 mmol/L (21-32); GLUCOSE,RANDOM 294 mg/dL (74-106)
[2020-12-24 06:33] LABS: SGOT/AST 71 U/L (15-37); SGPT/ALT 152 U/L (13-61)
[2020-12-24 06:34] LABS: CREATININE 2.8 mg/dL (0.55-1.3)
[2020-12-24 06:35] LABS: ALK PHOS 145 U/L (45-117); BILIRUBIN,TOTAL 0.8 mg/dL (0.2-1); TOT PROT 4.7 g/dl (6.4-8.2)
[2020-12-24] MEDS: INSULIN SLIDING SCALE (NOVOLOG) 1 VIAL SQ SCH ×4 (06:43→22:45)
[2020-12-24] MEDS ORDERED: FENTANYL IVPB 500 MCG/100 ML BAG IVPB ONE (07:23)
[2020-12-24] MEDS: FENTANYL NS IVPB 500 MCG/100 ML BAG IVPB SCH (07:34)
[2020-12-24 09:04] LABS: ANISOCYTOSIS 1+; MACROCYTOSIS 0; PLATELET ESTIMATE DECREASED
[2020-12-24] MEDS: PROPOFOL 1,000,000 MCG/100 ML VIAL IVPB SCH (09:34)
[2020-12-24] MEDS: AMINO ACIDS/PROTEIN HYDROLYS 30 ML LIQUID.PKT PO SCH ×2 (09:34→17:13)
[2020-12-24] MEDS: SODIUM ZIRCONIUM CYCLOSILICATE (LOKELMA) 5 GM PACKET PO SCH ×2 (09:35→22:14)
[2020-12-24] MEDS: LACTULOSE 20 GM/30 ML UDC (FOR ORAL USE ONLY) PO SCH ×4 (09:35→22:13)
[2020-12-24] MEDS: DEXAMETHASONE SOD PHOSPHATE 4 MG/1 ML VIAL IVPUSH SCH ×2 (09:48→22:13)
[2020-12-24] MEDS: APIXABAN 5 MG TABLET PO SCH ×2 (09:48→22:13)
[2020-12-24] MEDS: FAMOTIDINE 20 MG/50 ML IVPB 20 MG/50 ML MG IVPB SCH ×2 (09:49→22:15)
[2020-12-24] MEDS: METOPROLOL TARTRATE 25 MG TABLET (FP) PO SCH ×2 (09:50→22:15)
[2020-12-24] MEDS: FUROSEMIDE INJECTION 100 MG in DEXTROSE 5%-WATER - 90 ML IVPB SCH ×2 (11:04→18:53)
[2020-12-24 14:54] LABS: BLOOD UREA NITROGEN 181.5 mg/dL (7-18); CALCIUM 6.8 mg/dL (8.5-10.1)
[2020-12-24] MEDS: VECURONIUM BROMIDE 100 MG/100 ML BAG IVPB SCH (15:05)
[2020-12-24] MEDS: ATORVASTATIN CA 40 MG TABLET (FP) PO SCH (22:14)
[2020-12-24] MEDS: SENNOSIDES 8.8 MG/5 ML BULK BOTTLE PO SCH (22:15)
[2020-12-24] MEDS: NOREPINEPHRINE BITARTRATE 8,000 MCG/500 ML BAG IVPB SCH (22:45)
[2020-12-24] MEDS: INSULIN (LEVEMIR) 100 UNITS/ML UNITS SQ SCH (22:45)
[2020-12-25] MEDS: FENTANYL NS IVPB 500 MCG/100 ML BAG IVPB SCH (06:05)
[2020-12-25] MEDS: INSULIN SLIDING SCALE (NOVOLOG) 1 VIAL SQ SCH ×4 (06:17→22:30)
[2020-12-25 06:55] LABS: BASO % 0.2 % (0-2.0); EOS % 0.1 % (0-4.5); HEMATOCRIT 20.5 % (35.4-49); LYMPH % 1.8 % (8-40); MCHC 33.9 g/dl (32.0-35.9); MEAN CELL VOLUME 91.7 fl (80-96); MEAN PLT VOLUME 12.1 fl (7.5-11.1); MONO % 3.9 % (3.8-10.2); PLATELET COUNT 54 K/MM3 (134-434); RBC 2.24 M/mm3 (4.00-5.60); RDW 14.3 % (11.9-15.9); WHITE BLOOD COUNT 18.6 K/mm3 (4.0-10.0)
[2020-12-25 07:11] LABS: CHLORIDE 99 mmol/L (98-107); SODIUM 135 mmol/L (136-145)
[2020-12-25 07:19] LABS: ALBUMIN 2.1 g/dl (3.4-5.0); ANION GAP 13 MMOL/L (8-16); CO2 23 mmol/L (21-32); GLUCOSE,RANDOM 252 mg/dL (74-106)
[2020-12-25 07:22] LABS: CREATININE 3.2 mg/dL (0.55-1.3); SGOT/AST 61 U/L (15-37); SGPT/ALT 116 U/L (13-61)
[2020-12-25 07:24] LABS: BILIRUBIN,TOTAL 0.7 mg/dL (0.2-1); TOT PROT 4.4 g/dl (6.4-8.2)
[2020-12-25 07:25] LABS: ALK PHOS 121 U/L (45-117)
[2020-12-25 07:37] LABS: CALCIUM 6.1 mg/dL (8.5-10.1)
[2020-12-25 08:40] LABS: HEMOGLOBIN 6.9 GM/dL (11.7-16.9)
[2020-12-25] MEDS: SODIUM ZIRCONIUM CYCLOSILICATE (LOKELMA) 5 GM PACKET PO SCH ×2 (10:27→22:02)
[2020-12-25] MEDS: FAMOTIDINE 20 MG/50 ML IVPB 20 MG/50 ML MG IVPB SCH ×2 (10:27→22:03)
[2020-12-25] MEDS: AMINO ACIDS/PROTEIN HYDROLYS 30 ML LIQUID.PKT PO SCH ×2 (10:27→18:36)
[2020-12-25] MEDS: METOPROLOL TARTRATE 25 MG TABLET (FP) PO SCH ×2 (10:27→22:02)
[2020-12-25] MEDS: FUROSEMIDE INJECTION 100 MG in DEXTROSE 5%-WATER - 90 ML IVPB SCH (10:29)
[2020-12-25] MEDS: DEXAMETHASONE SOD PHOSPHATE 4 MG/1 ML VIAL IVPUSH SCH (10:29)
[2020-12-25] MEDS: APIXABAN 5 MG TABLET PO SCH ×2 (10:29→22:01)
[2020-12-25] MEDS: PROPOFOL 1,000,000 MCG/100 ML VIAL IVPB SCH (10:29)
[2020-12-25 10:34] LABS: ANISOCYTOSIS 0; MACROCYTOSIS 0; OVALOCYTE 1+; PLATELET ESTIMATE DECREASED
[2020-12-25] MEDS: VECURONIUM BROMIDE 100 MG/100 ML BAG IVPB SCH (15:04)
[2020-12-25] MEDS ORDERED: DEXAMETHASONE SOD PHOSPHATE 4 MG/1 ML VIAL IVPUSH SCH ×2 (22:00)
[2020-12-25] MEDS: SENNOSIDES 8.8 MG/5 ML BULK BOTTLE PO SCH (22:03)
[2020-12-25] MEDS: INSULIN (LEVEMIR) 100 UNITS/ML UNITS SQ SCH (22:30)
[2020-12-26] MEDS: NOREPINEPHRINE BITARTRATE 8,000 MCG/500 ML BAG IVPB SCH (05:39)
[2020-12-26] MEDS: INSULIN SLIDING SCALE (NOVOLOG) 1 VIAL SQ SCH ×2 (06:05→11:16)
[2020-12-26] MEDS: FENTANYL NS IVPB 500 MCG/100 ML BAG IVPB SCH (06:05)
[2020-12-26 06:51] LABS: BASO % 0.6 % (0-2.0); EOS % 0.1 % (0-4.5); LYMPH % 1.4 % (8-40); MCH 30.8 pg (25.7-33.7); MEAN CELL VOLUME 93.1 fl (80-96); MEAN PLT VOLUME 12.7 fl (7.5-11.1); MONO % 2.5 % (3.8-10.2); NEUT % 95.4 % (42.8-82.8); PLATELET COUNT 61 K/MM3 (134-434); RBC 2.12 M/mm3 (4.00-5.60); RDW 14.3 % (11.9-15.9); WHITE BLOOD COUNT 25.7 K/mm3 (4.0-10.0)
[2020-12-26 07:12] LABS: CHLORIDE 96 mmol/L (98-107); SODIUM 133 mmol/L (136-145)
[2020-12-26 07:13] LABS: ALBUMIN 2.1 g/dl (3.4-5.0); CO2 21 mmol/L (21-32); GLUCOSE,RANDOM 296 mg/dL (74-106)
[2020-12-26 07:16] LABS: CREATININE 3.6 mg/dL (0.55-1.3); SGOT/AST 71 U/L (15-37); SGPT/ALT 105 U/L (13-61)
[2020-12-26 07:17] LABS: HEMOGLOBIN 6.5 GM/dL (11.7-16.9)
[2020-12-26 07:18] LABS: HEMATOCRIT 19.8 % (35.4-49); TOT PROT 4.6 g/dl (6.4-8.2)
[2020-12-26 07:20] LABS: ALK PHOS 131 U/L (45-117)
[2020-12-26 07:43] LABS: ANION GAP 16 MMOL/L (8-16); BLOOD UREA NITROGEN 218.7 mg/dL (7-18); CALCIUM 5.6 mg/dL (8.5-10.1)
[2020-12-26] MEDS: AMINO ACIDS/PROTEIN HYDROLYS 30 ML LIQUID.PKT PO SCH ×2 (07:54→17:34)
[2020-12-26] MEDS ORDERED: DEXTROSE 50%-WATER - 25 GM/50 ML VIAL IVPUSH ONE (09:00)
[2020-12-26] MEDS ORDERED: CALCIUM GLUCONATE 10% - 1,000 MG/10 ML VIAL IVPUSH ONE (09:00)
[2020-12-26] MEDS ORDERED: INSULIN REGULAR HUMAN 100 UNITS/ML *VIAL IVPUSH ONE (09:00)
[2020-12-26 09:10] LABS: ANISOCYTOSIS 0; MACROCYTOSIS 0; OVALOCYTE 1+; PLATELET ESTIMATE DECREASED
[2020-12-26] MEDS ORDERED: DEXTROSE 50%-WATER - 25 GM/50 ML VIAL ONE (09:39)
[2020-12-26] MEDS ORDERED: DEXTROSE 50%-WATER 25 GM/50 ML DISP.SYRIN ONE (09:40)
[2020-12-26] MEDS: PROPOFOL 1,000,000 MCG/100 ML VIAL IVPB SCH (09:43)
[2020-12-26] MEDS: SODIUM ZIRCONIUM CYCLOSILICATE (LOKELMA) 5 GM PACKET PO SCH (09:44)
[2020-12-26] MEDS: APIXABAN 5 MG TABLET PO SCH (09:44)
[2020-12-26] MEDS: FUROSEMIDE INJECTION 100 MG in DEXTROSE 5%-WATER - 90 ML IVPB SCH (09:44)
[2020-12-26] MEDS: DEXAMETHASONE SOD PHOSPHATE 4 MG/1 ML VIAL IVPUSH SCH ×2 (09:44→10:54)
[2020-12-26] MEDS: FAMOTIDINE 20 MG/50 ML IVPB 20 MG/50 ML MG IVPB SCH ×2 (09:44→22:10)
[2020-12-26] MEDS: METOPROLOL TARTRATE 25 MG TABLET (FP) PO SCH ×2 (09:44→22:10)
[2020-12-26] MEDS ORDERED: PROPOFOL 1,000,000 MCG/100 ML VIAL IVPB SCH (12:30)
[2020-12-26] MEDS ORDERED: MORPHINE SULFATE/0.9% NACL/PF 100 MG/100 ML BAG IVPB PRN (15:15)
[2020-12-26] MEDS ORDERED: FENTANYL NS IVPB 500 MCG/100 ML BAG IVPB ONE (16:09)
[2020-12-27] MEDS: NOREPINEPHRINE BITARTRATE 8,000 MCG/500 ML BAG IVPB SCH (02:05)
[2020-12-27 07:29] VITALS: TEMP 94.8
[2020-12-27] MEDS: AMINO ACIDS/PROTEIN HYDROLYS 30 ML LIQUID.PKT PO SCH (09:09)
[2020-12-27] MEDS: DEXAMETHASONE SOD PHOSPHATE 10 MG/1 ML VIAL IVPUSH SCH ×2 (09:09→10:09)
[2020-12-27] MEDS: FAMOTIDINE 20 MG/50 ML IVPB 20 MG/50 ML MG IVPB SCH (09:09)
[2020-12-27] MEDS: METOPROLOL TARTRATE 25 MG TABLET (FP) PO SCH (09:10)
[2020-12-27 12:36] VITALS: BP 63/44; PULSE 71
== END 2020-12-27 13:20 | disposition expired | DRG 207 ==
LOC: JER 09:55 → JERBED 17:05 → J4S 12-05 16:20 → JICU 12-12 08:40
PROVIDERS: ADMIT Internal Medicine; ATTEND Internal Medicine Pulmonary Disease
PROC: XW033E5 Introduction of Remdesivir Anti-infective into Peripheral Vein, Percutaneous Approach, New Technology Group 5 (ICD-10-PCS; 2020-12-06)
PROC: 0BH17EZ Insertion of Endotracheal Airway into Trachea, Via Natural or Artificial Opening (ICD-10-PCS; principal; 2020-12-12)
PROC: 5A1955Z Respiratory Ventilation, Greater than 96 Consecutive Hours (ICD-10-PCS; 2020-12-12)
PROC: 0DH67UZ Insertion of Feeding Device into Stomach, Via Natural or Artificial Opening (ICD-10-PCS; 2020-12-14)
PROC: 3E0G76Z Introduction of Nutritional Substance into Upper GI, Via Natural or Artificial Opening (ICD-10-PCS; 2020-12-14)
PROC: 05HN33Z Insertion of Infusion Device into Left Internal Jugular Vein, Percutaneous Approach (ICD-10-PCS; 2020-12-19)
PROC: B544ZZA Ultrasonography of Left Jugular Veins, Guidance (ICD-10-PCS; 2020-12-19)
PROC: 5A1D70Z Performance of Urinary Filtration, Intermittent, Less than 6 Hours Per Day (ICD-10-PCS; 2020-12-19)
DX: U07.1 COVID-19 (principal); J12.82 Pneumonia due to coronavirus disease 2019; J96.01 Acute respiratory failure with hypoxia; N17.0 Acute kidney failure with tubular necrosis; A41.9 Sepsis, unspecified organism; R65.21 Severe sepsis with septic shock; J98.11 Atelectasis; Z68.41 Body mass index [BMI] 40.0-44.9, adult; N17.9 Acute kidney failure, unspecified; N39.0 Urinary tract infection, site not specified; T85.628A Displacement of other specified internal prosthetic devices, implants and grafts, initial encounter; I25.119 Atherosclerotic heart disease of native coronary artery with unspecified angina pectoris; I12.9 Hypertensive chronic kidney disease with stage 1 through stage 4 chronic kidney disease, or unspecified chronic kidney disease; N18.30 Chronic kidney disease, stage 3 unspecified; I48.0 Paroxysmal atrial fibrillation; E11.22 Type 2 diabetes mellitus with diabetic chronic kidney disease; E78.5 Hyperlipidemia, unspecified; I45.10 Unspecified right bundle-branch block; B96.20 Unspecified Escherichia coli [E. coli] as the cause of diseases classified elsewhere; E66.9 Obesity, unspecified; D69.6 Thrombocytopenia, unspecified; E87.5 Hyperkalemia; R59.1 Generalized enlarged lymph nodes; R94.31 Abnormal electrocardiogram [ECG] [EKG]; Z95.5 Presence of coronary angioplasty implant and graft; Z86.73 Personal history of transient ischemic attack (TIA), and cerebral infarction without residual deficits; Y84.8 Other medical procedures as the cause of abnormal reaction of the patient, or of later complication, without mention of misadventure at the time of the procedure; Z66 Do not resuscitate
CPT/HCPCS: 36415; 36600; 71045-TC-FY; 71250-TC; 80048; 80053; 81003; 82248; 82272; 82550; 82553; 82570; 82728; 82803; 82962; 83036; 83615; 83735; 83880; 84100; 84156; 84443; 84484; 85025; 85027; 85379; 85610; 85730; 86140; 86480; 86704; 86706; 86707; 86708; 86709; 86738; 86769; 86803; 87040; 87086; 87186; 87324; 87340; 87449; 87804; 87899; 93005; 93010; 93970-TC; 94002; 94660; 99285-25; C9399; C9803; J0131; J1100; J1644; J3262; U0003; U0005